=== PATIENT | male | born 1980 | race Two or more races ===

== ENCOUNTER 2021-02-25 12:48 | Outpatient (REF) | payer OTHER, SELFPAY ==
[2021-02-25 14:29] LABS: Alanine Aminotransferase 82 U/L (0-40); Albumin Level 4.4 g/dL (3.5-5.0); Alkaline Phosphatase 87 U/L (39-117); Anion Gap 15 (12-20); Aspartate Amino Transferase 47 U/L (5-37); Bilirubin Total 0.7 mg/dL (0.0-1.0); Blood Urea Nitrogen 9 mg/dL (9-16); Calcium 9.6 mg/dL (8.4-10.2); Carbon Dioxide 26 mmol/L (22-29); Chloride 102 mmol/L (96-108); Cholesterol 187 mg/dL; Estimated Glomerular Filt Rate > 60; Glucose Fasting 374 mg/dL (60-99); HDL Cholesterol 26 mg/dL; Potassium 4.7 mmol/L (3.3-5.1); Sodium 138 mmol/L (135-145); Total Protein 7.2 g/dL (6.5-8.0); Triglycerides 552 mg/dL
== END 2021-02-25 12:49 | disposition home or self-care (01) ==
LOC: HO.HMGCLDS 12:48
PROVIDERS: PCP Internal Medicine; Visit Provider Internal Medicine
DX: I10 Essential (primary) hypertension (principal); G47.33 Obstructive sleep apnea (adult) (pediatric); E66.01 Morbid (severe) obesity due to excess calories; Z68.45 Body mass index [BMI] 70 or greater, adult; Z99.89 Dependence on other enabling machines and devices; Z79.899 Other long term (current) drug therapy
CPT/HCPCS: 36415; 80053; 80061; 99212

== ENCOUNTER → 2022-05-28 11:12 | Outpatient (BNVA) | payer OTHER, SELFPAY | PROVIDERS: PCP Internal Medicine; Visit Provider Internal Medicine | DX: G47.33 Obstructive sleep apnea (adult) (pediatric) (principal); E66.01 Morbid (severe) obesity due to excess calories; Z68.45 Body mass index [BMI] 70 or greater, adult; Z99.89 Dependence on other enabling machines and devices | CPT/HCPCS: 99212 ==

== ENCOUNTER 2022-05-30 13:16 | Outpatient (REF) | payer OTHER, SELFPAY ==
[2022-05-30 17:05] LABS: Creatinine Urine 159.09 mg/dL; Microalbum/Creatinine Ratio Ur 23.8 ug/mg cr
[2022-05-30 17:28] LABS: Alanine Aminotransferase 70 U/L (0-40); Albumin Level 4.6 g/dL (3.5-5.0); Alkaline Phosphatase 79 U/L (39-117); Anion Gap 16 (12-20); Aspartate Amino Transferase 35 U/L (5-37); Bilirubin Total 0.6 mg/dL (0.0-1.0); Blood Urea Nitrogen 11 mg/dL (9-16); Calcium 9.8 mg/dL (8.4-10.2); Carbon Dioxide 25 mmol/L (22-29); Chloride 100 mmol/L (96-108); Cholesterol 215 mg/dL; Estimated Glomerular Filt Rate > 60; Glucose Fasting 193 mg/dL (60-99); HDL Cholesterol 28 mg/dL; LDL Cholesterol Calculated 122 mg/dl; Potassium 4.2 mmol/L (3.3-5.1); Sodium 137 mmol/L (135-145); Total Protein 7.4 g/dL (6.5-8.0); Triglycerides 327 mg/dL
== END 2022-05-30 13:17 | disposition home or self-care (01) ==
LOC: HO.HMGCLDS 13:16
PROVIDERS: PCP Internal Medicine; Visit Provider Internal Medicine
DX: E11.65 Type 2 diabetes mellitus with hyperglycemia (principal); E66.01 Morbid (severe) obesity due to excess calories; Z68.45 Body mass index [BMI] 70 or greater, adult; I10 Essential (primary) hypertension; E78.1 Pure hyperglyceridemia
CPT/HCPCS: 36415; 80053; 80061; 82043

== ENCOUNTER 2024-03-21 09:32 | Outpatient (REF) | payer OTHER, SELFPAY ==
[2024-03-21 13:46] LABS: Estimated Average Glucose 206 mg/dL; Hemoglobin A1c % 8.8 % (<6.0)
[2024-03-21 13:57] LABS: Alanine Aminotransferase 60 U/L (0-40); Albumin Level 4.7 g/dL (3.5-5.0); Alkaline Phosphatase 75 U/L (39-117); Anion Gap 14 (12-20); Aspartate Amino Transferase 25 U/L (5-37); Blood Urea Nitrogen 11 mg/dL (9-16); Calcium 9.4 mg/dL (8.4-10.2); Carbon Dioxide 24 mmol/L (22-29); Chloride 101 mmol/L (96-108); Cholesterol 130 mg/dL (<200); Estimated Glomerular Filt Rate > 60; Glucose Fasting 346 mg/dL (60-99); HDL Cholesterol 29 mg/dL (>40); LDL Cholesterol Calculated 38 mg/dL (<100); Potassium 4.3 mmol/L (3.3-5.1); Sodium 135 mmol/L (135-145); Total Protein 7.7 g/dL (6.5-8.0); Triglycerides 317 mg/dL (<150)
[2024-03-21 13:59] LABS: Creatinine Urine 152.12 mg/dL; Microalbum/Creatinine Ratio Ur 137.3 ug/mg cr (<30)
== END 2024-03-21 09:33 | disposition home or self-care (01) ==
LOC: HO.HMGCLDS 09:32
PROVIDERS: PCP Internal Medicine; Visit Provider Internal Medicine
DX: E78.2 Mixed hyperlipidemia (principal); E11.65 Type 2 diabetes mellitus with hyperglycemia; E66.01 Morbid (severe) obesity due to excess calories; Z68.45 Body mass index [BMI] 70 or greater, adult; I10 Essential (primary) hypertension; F33.9 Major depressive disorder, recurrent, unspecified
CPT/HCPCS: 36415; 80053; 80061; 82043; 82570; 83036

== ENCOUNTER 2024-03-22 11:24 | Outpatient (AMB) | payer OTHER, SELFPAY ==
--- NOTE | 2024-03-22 12:36 | MHC.PC.OV ---
Vital Signs 03/22/24 12:45 Height 5 ft 10 in Weight 264 lb BMI 37.9 BP 122/82 Blood Pressure Location Rt brachial Position Sitting Pulse 79 Pulse Source Pulse Oximeter Pulse Oximetry (%) 98 Oxygen Delivery Method Room Air Intake Visit Reasons: PE Intake Note: Pt is here today for his PE Allergies doxycycline Allergy (Unknown, Verified 03/25/24 17:56) stomach upset Medication List - Last Reconciled 03/25/24 by Isi Carbajal MD alprazolam 0 mg PO benazepril 10 mg PO DAILY cetirizine 10 mg PO DAILY escitalopram oxalate 20 mg PO DAILY melatonin 5 mg PO BEDTIME metformin 1,000 mg PO BID prazosin 5 mg PO BEDTIME quetiapine 50 mg PO QAM rosuvastatin 5 mg PO DAILY tirzepatide (Mounjaro) 2.5 mg (0.5 mL) subcut QWEEK 4 weeks zolpidem 10 mg PO BEDTIME PRN Tobacco use date assessed: 03/22/24 Dental Screening Dental Screen Date: 03/22/24 Did you have a dental visit in the last 12 months?: Yes Did you have a dental problem in the last 6 months where you did not have access to dental care?: No Was dental information given to patient?: Patient has dentist HPI PE HPI Details 44-year-old male with diabetes mellitus, morbid obesity, has hyperlipidemia,, depression, obstructive sleep apnea on CPAP, and hypertension, here today for his physical exam. Had recent fasting labs done which showed uncontrolled diabetes mellitus with hemoglobin A1c at 8.9%, positive microalbuminuria, but fasting lipids are within normal limits blood pressure is also stable and controlled on present treatment. He admits to not eating well, has been eating a lot of processed foods, junk food, high glycemic index food . Patient states that he has been having difficulty controlling his diet as he cooks also for his children 2 of which are autistic and are very picky with her food. No regular exercise done as well Has hypertension currently stable and controlled on present treatment. Has major recurrent depression currently followed by psychiatrist and therapist. Complains of intermittent left flank pain, and states that he noticed fasting some stones in his urine, denies any accompanying hematuria, asymptomatic at present [facility] Medical History (Updated 03/25/24 @ 18:09 by Isi Carbajal MD) Mixed dyslipidemia Depression, major, recurrent Diabetes mellitus with hyperglycemia, without long-term current use of insulin MICKEY on CPAP Morbid obesity with body mass index (BMI) greater than or equal to 70 in adult Essential hypertension Surgical History No pertinent past surgical history Social History Housing: House Patient Tobacco Use Status: Never used Tobacco e-Cigarette/Vaping Use: Never Used Current occupational status: retired Cognitive needs: No Hearing needs: No Vision needs: Yes Questionnaire PHQ-9 Over the last 2 weeks, how often have you been bothered by any of the following problems? 1. Little interest or pleasure in doing things: more than half the days 2. Feeling down, depressed, or hopeless: several days 3. Trouble falling or staying asleep, or sleeping too much: nearly every day 4. Feeling tired or having little energy: nearly every day 5. Poor appetite or overeating: nearly every day 6. Feeling bad about yourself - or that you are a failure or have let yourself or your family down: several days 7. Trouble concentrating on things, such as reading the newspaper or watching television: nearly every day 8. Moving or speaking so slowly that other people could have noticed. Or the opposite - being so fidgety or restless that you have been moving around a lot more than usual: more than half the days 9. Thoughts that you would be better off or of hurting yourself in some way: not at all Total score: 18 Depression Screening Interpretation: Positive (Currently followed by Bladimir Ty-psychiatrist) Depression Screening Follow-up: Existing condition and In treatment Depression Screening Done: Yes Source: Developed by Drs. Amado Yoder, Barbara Kellogg, Luis Angel Kerns and colleagues, with an educational frances from [employer]. Thrive Questionnaire Date Thrive assessed: 03/22/24 I am a: Patient What is your living situation today?: I choose not to answer this question Within the past 12 months, did the food you bought not last and you didn't have the money to get more?: Often true Within the past 12 months, did you worry whether your food would run out before you got money to buy more?: Often true Do you have trouble paying for medicines?: Yes Do you have trouble getting transportation to medical appointments?: Yes Do you have trouble paying your heating and electricity bill?: Yes Do you have trouble taking care of your child, family member or friend?: Yes Do you have trouble with day-to-day activities such as bathing, preparing meals, shopping, managing finances, etc.?: Yes Are you currently unemployed and looking for a job?: No Are you interested in more education?: No Please select the resources that you would like help with: Housing/Longterm, Food and Utilities Currently or been in a relationship where the following occur: I choose not to answer THRIVE Score: 4 AUDIT C Alcohol Use Questionnaire (AUDIT-C) 1. How often do you have a drink containing alcohol?: Never 2. How many drinks containing alcohol do you have on a typical day when you are drinking?: 1 or 2 3. How often do you have six or more drinks on one occasion?: Never Total Score: 0 GROVER-7 AMB Questionnaire GROVER-7 Date GROVER - 7 assessed: 03/22/24 Feeling nervous, anxious, or on edge: 3 = Nearly every day Not being able to stop or control worryin = Nearly every day Worrying too much about different things: 2 = More than half the days Trouble relaxin = Nearly every day Being so restless that it is hard to sit still: 1 = Several days Becoming easily annoyed or irritable: 3 = Nearly every day Feeling afraid as if something awful might happen: 3 = Nearly every day Total GROVER-7 score (0-4 normal; 5-9 mild; 10-14 moderate; 15-21 severe): 18 Source: Developed by Drs. Amado Yoder, Barbara Kellogg, Luis Angel Kerns and colleagues, with an educational frances from [employer]. GROVER-7 Assessment Billing GROVER-7 Assessment Tool: GROVER-7 Assessment 77713 Review of Systems Const Reports no additional complaints Eyes Details: ff'd by Dr Morrow ENT Reports no additional complaints Card Denies chest pain, Denies irregular heart rhythm, Denies leg edema and Denies palpitations Resp Reports no additional complaints GI Reports no additional complaints Reports as per HPI Musc Reports no additional complaints Skin/Breast Denies breast mass Neuro Reports no additional complaints and Reports Abnormal speech present Psych Reports no additional complaints and Reports depression Endo Denies polyphagia, Reports polydipsia, Reports polyuria and Denies palpitations Messi/Lymph Reports no additional complaints Aller/Immun Reports no additional complaints Physical exam (Primary Care) Vital Signs: Last Vital Signs Pulse 79 03/22/24 12:45 BP 122/82 03/22/24 12:45 Pulse Ox 98 03/22/24 12:45 Oxygen Delivery Method Room Air 03/22/24 12:45 BMI result Body Mass Index 37.9 BMI Assessment/Plan discussion: High BMI High, discussed plan: lifestyle, weight reduction, dietary, physical activity and alcohol moderation Tobacco/Smoking Status: Tobacco use Status Tobacco use date assessed 03/22/24 03/22/24 12:50 Patient Tobacco Use Status Never used Tobacco 03/22/24 12:38 e-Cigarette/Vaping Use Never Used 03/22/24 12:38 PHQ-9: PHQ-9 Score PHQ-9: Total score 19 03/22/24 13:26 Depression Screening Interpretation: Positive (Currently followed by Bladimir Ty-psychiatrist) Depression Screening Follow-up: Existing condition and In treatment Thrive Assessment: Date of Thrive Assessment Date Thrive assessed 03/22/24 03/22/24 12:50 Currently or been in a relationship where the following occur: I choose not to answer Const General: cooperative, comfortable and no acute distress Nutritional Appearance: obese morbidly obese Orientation/consciousness: patient oriented x3 Limitations: no limitations HENMT Ears: hearing grossly normal bilaterally, external ears normal, TM's normal bilaterally and EAC's normal General nose exam: Normal external nose present and No nasal discharge present Mouth: oropharynx normal and moist mucous membranes Eyes Pupils: Equal, round and reactive pupils present Neck Neck: Yes full ROM, Yes no lymphadenopathy and Yes supple Chest Chest palpation & inspection: normal inspection of the chest Resp Effort & Inspection: normal respiratory effort and able to speak in complete sentences Auscultation: clear to auscultation bilaterally Cardio Rate: regular rate Rhythm: regular rhythm Heart sounds: S1 normal heart sound present and S2 normal heart sound present GI Inspection: Yes obesity Palpation (GI): Soft to palpation, nontender and no masses Auscultation: normal bowel sounds General: Yes no CVA tenderness Back/Spine/Pelvis Back: no CVA tenderness Skin General skin exam: no rashes or lesions noted Neuro General: patient oriented x3, gait normal, moves all extremities, Normal light touch and pain sensation and no focal motor deficits Cranial nerves: Yes Equal, round and reactive pupils present Cognition (Neuro): normal cognition Speech: Abnormal speech present Gait exam (Neuro): Normal gait present Motor exam (neuro): 5/5 motor strength present throughout Extrem General: Yes full ROM, Yes no joint enlargement, Yes no pedal edema, Yes no calf tenderness and Yes normal gait Psych Appearance: grossly normal Mental Status: mental status grossly normal Speech and movement: Normal speech and movement present Affect: normal affect Attitude: cooperative Thought process: Normal thought process present Immunizations Boostrix Tdap 2.5 Lf unit-8 mcg-5 Lf/0.5 mL intramuscular syringe Performing Provider: Isi Carbajal MD Performing Location: [facility] Administered by: Sho Valente CMA on 03/22/24 13:25 Dose Route Admin Location Dispensed Lot Number Expiration Date NDC Edge Polisher 0.5 mL IM Right Deltoid 0.5 mL [id number] 04/02/26 [id number] [employer] VIS Given Date VIS Provided VIS Publication Date 03/22/24 Single Vaccine 21 Eligibility Eligibility Date Funding Source Not [facility] Eligible 03/22/24 Private Results Reviewed Results Reviewed: Laboratory Tests 03/21/24 10:20 Estimat Average Glucose 206 Hemoglobin A1c % 8.8 H Urine Creatinine 152.12 Urine Microalbumin 209.0 Microalb/Creat Ratio 137.3 H conrado: Nam Angel Age/Sex: 44/M : 1980 Unit#: [id number] Attend Dr: Isi Carbajal MD Re03/21/24 Status: DEP REF Location: [facility] Disch: SPEC : [id number] YOKO: 03/21/24 STATUS: COMP REQ : [id number] RECD: 03/21/24-[address]: Isi Carbajal MD COMP: 03/21/24 ENTERED: 03/21/24-[address]: ORDERED: CMP Fast, Lipid Panel Test Result Flag Reference Sodium 135 135-145 mmol/L Potassium 4.3 3.3-5.1 mmol/L CL 101 96-108 mmol/L CO2 24 22-29 mmol/L Gap 14 12-20 BUN 11 9-16 mg/dL Creat 0.90 0.5-1.4 mg/dL EGFR > 60 NOTE: For -[place] individuals, multiply the result by 1.210. Chronic Kidney Disease: Estimated GFR < 60 mL/min/1.73m2 Severe Kidney Disease: Estimated GFR < 15 mL/min/1.73m2 FBS 346 H 60-99 mg/dL A fasting glucose of 126 mg/dl or greater on more than one occasion is considered diagnostic of diabetes. CA 9.4 8.4-10.2 mg/dL Total Bili 1.0 0.0-1.0 mg/dL AST (GOT) 25 5-37 U/L ALT (GPT) 60 H 0-40 U/L Protein, Total 7.7 6.5-8.0 g/dL Alb 4.7 3.5-5.0 g/dL Triglyceride 317 H <150 mg/dL Desirable Triglyceride: less than 150 mg/dL Borderline High Triglyceride 150-199 mg/dL High Triglyceride: 200-499 mg/dL Very High Triglyceride: greater than or equal to 5OO mg/dL Cholesterol 130 <200 mg/dL Desirable Cholesterol: less than 200 mg/dL Borderline High Cholesterol: 200-239 mg/dL High Cholesterol: greater than 239 mg/dL LDL Calculated 38 <100 mg/dL Desirable LDL: less than 100 mg/dL Near Optimal/Above Optimal LDL: 110-129 mg/dL Borderline High LDL: 130-159 mg/dL High LDL: 160-189 mg/dL Very High LDL: greater than or equal to 190 mg/dL HDL 29 L >40 mg/dL Desirable HDL: greater than 40 mg/dL Note: This HDL assay may give artificially low results in patients with liver disease. Alk Phos 75 39-117 U/L Assessment and Plan Assessment & Plan (1) Annual visit for general adult medical examination with abnormal findings: Code(s): Z00.01 - Encounter for general adult medical examination with abnormal findings Plan: Recent fasting lab results reviewed with patient. Recommended dental visit every 6 months and regular eye exams, sees Dr. Morrow yearly, has an appointment later this afternoon.. Take adequate calcium in diet and vitamin-D 3 at 2000 IU per cap once a day, in addition to weight-bearing exercises to help maintain good muscle tone and weight control. Instructed to do self-testicular exam check for any mass. Declines COVID vaccine, reminded to get his flu vaccine yearly, up-to-date with his pneumonia vaccine, Tdap given today. Referred to [facility] for his colon cancer screening (2) Left flank pain: Code(s): R10.9 - Unspecified abdominal pain Plan: Renal ultrasound ordered (3) Mixed dyslipidemia: Code(s): E78.2 - Mixed hyperlipidemia Plan: Reviewed recent fasting lipid profile with patient with LDL cholesterol within normal limits but triglycerides elevated was likely due to uncontrolled diabetes . Continue rosuvastatin 5 mg daily , in addition to adherence to low-cholesterol diet and regular exercise, at least 30 minutes 3 to 4 times a week. Advised patient to make healthy food choices, eat more fruits, vegetables, whole grains, wild caught fish and low-fat dairy. Limit amount of meat and fried or fatty food products, as well as processed foods and fast foods. Follow-up scheduled with repeat fasting lipid panel in 3 months. (4) Depression, major, recurrent: Code(s): F33.9 - Major depressive disorder, recurrent, unspecified Plan: Followed by psychiatry (5) Diabetes mellitus with hyperglycemia, without long-term current use of insulin: Code(s): E11.65 - Type 2 diabetes mellitus with hyperglycemia Plan: Recent lab results reviewed with patient, with sugar and hemoglobin A1c not at goal. Patient states that he has been out of his Trulicity for several weeks now, will start on Mounjaro, started 2.5 mg injected once a week subcutaneously, continue with metformin a 1000 mg 1 tablet twice a day, continue to check fasting blood sugar at home, maintain log and bring to next appointment for review. Reinforced diabetic diet and regular exercise with patient. Counseled regarding importance of yearly diabetes retinopathy screening. Patient advised to inspect feet daily, for any signs of injury, callus or infection. Compliance with diet and regular exercise again stressed. Blood pressure goal is less than 130/80, goal LDL is less than 100 and goal hemoglobin A1c is less than 7% follow-up appointment made in---months, after fasting labs done. (6) MICKEY on CPAP: Comment: HE IS KNOWN TO HAVE OBSTRUCTIVE SLEEP APNEA SINCE 2017. HAS BEEN USING THE CPAP VERY REGULARLY AND BENEFITING. HIS CURRENT CPAP MACHINE IS 7 YEARS OLD, HAD STOPPED TRANSMITTING THE COMPLIANCE DATA. Code(s): G47.33 - Obstructive sleep apnea (adult) (pediatric); Z99.89 - Dependence on other enabling machines and devices Plan: Followed by Pulmonary (7) Morbid obesity with body mass index (BMI) greater than or equal to 70 in adult: Code(s): E66.01 - Morbid (severe) obesity due to excess calories; Z68.45 - Body mass index [BMI] 70 or greater, adult Plan: Your BMI is above the ideal range. I deal BMI is between 18.5- 24. BMI is calculated from you height and weight. . Discussed need to increase activity and weight reduction. Recommended focusing on improving health instead of dieting. Mediterranean diet is a healthy diet that helps, limit food high in fat, sugar, and calories. Eat slowly, pay attention to portion sizes, plan your meals ahead of time, start regular physical activity, at least 150 minutes of moderate intensity exercise, or 90 minutes per week of vigorous exercise. Keeping a food diary, tracking what you eat and your physical activity can help assess what improvements you can make. There are many health problems associated with being overweight/obese, so it is important to improve your diet and exercise. There are medications and surgical options available, but Lifestyle changes are the 1st step. (8) Essential hypertension: Code(s): I10 - Essential (primary) hypertension Plan: Blood pressure at goal of less than 130/80. Continue with current medication. Reinforced importance of following a low sodium diet, getting regular exercise, and lowering stress levels. Orders: Orders US renal BI 03/24/24 R10.9 - Unspecified abdominal pain TDaP Immunization 03/22/24 Z23 - Encounter for immunization Hemoglobin A1c 06/17/24 E11.65 - Type 2 diabetes mellitus with hyperglycemia, E66.01 - Morbid (severe) obesity due to excess calories, E66.9 - Obesity, unspecified, E78.2 - Mixed hyperlipidemia, I10 - Essential (primary) hypertension, Z68.45 - Body mass index [BMI] 70 or greater, adult Basic Metabolic Panel Fasting 06/17/24 E11.65 - Type 2 diabetes mellitus with hyperglycemia, E66.01 - Morbid (severe) obesity due to excess calories, E66.9 - Obesity, unspecified, E78.2 - Mixed hyperlipidemia, I10 - Essential (primary) hypertension, Z68.45 - Body mass index [BMI] 70 or greater, adult Alanine Aminotransferase 06/17/24 E11.65 - Type 2 diabetes mellitus with hyperglycemia, E66.01 - Morbid (severe) obesity due to excess calories, E66.9 - Obesity, unspecified, E78.2 - Mixed hyperlipidemia, I10 - Essential (primary) hypertension, Z68.45 - Body mass index [BMI] 70 or greater, adult Aspartate Amino Transferase 06/17/24 E11.65 - Type 2 diabetes mellitus with hyperglycemia, E66.01 - Morbid (severe) obesity due to excess calories, E66.9 - Obesity, unspecified, E78.2 - Mixed hyperlipidemia, I10 - Essential (primary) hypertension, Z68.45 - Body mass index [BMI] 70 or greater, adult Lipid Panel 06/17/24 E11.65 - Type 2 diabetes mellitus with hyperglycemia, E66.01 - Morbid (severe) obesity due to excess calories, E66.9 - Obesity, unspecified, E78.2 - Mixed hyperlipidemia, I10 - Essential (primary) hypertension, Z68.45 - Body mass index [BMI] 70 or greater, adult Referrals Gastroenterology Referral Z12.11 - Encounter for screening for malignant neoplasm of colon Medications: New tirzepatide (Mounjaro) 2.5 mg (0.5 mL) subcut QWEEK 4 weeks 2 mL 3RF Coding Level of Care Code Est Pt Prev Care 40-64y(97351) Diagnoses Annual visit for general adult medical examination with abnormal findings Z00.01 Left flank pain R10.9 Mixed dyslipidemia E78.2 Depression, major, recurrent F33.9 Diabetes mellitus with hyperglycemia, without long-term current use of insulin E11.65 MICKEY on CPAP G47.33; Z99.89 Morbid obesity with body mass index (BMI) greater than or equal to 70 in adult E66.01; Z68.45 Essential hypertension I10 Additional Codes GROVER-7 Assessment Billing - GROVER-7 Assessment Tool: GROVER-7 Assessment [id number] ([id number])
[2024-03-22 12:45] VITALS: BP 122/82; PULSE 79; O2SAT 98; BMI 37.9
== END 2024-03-22 13:31 | disposition home or self-care (01) ==
PROVIDERS: PCP Internal Medicine; Visit Provider Internal Medicine
DX: Z23 Encounter for immunization (principal)
CPT/HCPCS: 90471; 90715; 99396

== ENCOUNTER 2024-03-23 14:04 | Outpatient (AMB) | payer OTHER, SELFPAY ==
[2024-03-23 14:16] VITALS: BP 124/80; PULSE 84; O2SAT 98; BMI 38.0
--- NOTE | 2024-03-23 14:16 | MHC.OFFVIS ---
Vital Signs 03/23/24 14:16 Height 5 ft 10 in Weight 264 lb 8.875 oz BMI 38.0 BP 124/80 Blood Pressure Location Lt brachial Position Sitting Pulse 84 Pulse Source Pulse Oximeter Pulse Oximetry (%) 98 Oxygen Delivery Method Room Air Intake Visit Reasons: Obstructive sleep apnea Intake Note: pt is here for follow up of MICKEY, and would like a replacement machine, he uses everynight with benefits. 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 Since then he has been using his CPAP regularly. And benefiting from its use In fact it will be difficult for him to go to sleep without using the CPAP. He has not been able to lose weight. In the last 2 months his CPAP machine is not transmitting the data for compliance. But he say is that he still uses it regularly at least 6-7 hours per night. Weight remains unchanged as he is not able to do a vigorous exercise on a daily basis. Now he has been started on Mounjero injection Q 1 week [facility] Medical History (Updated 03/23/24 @ 14:52 by Renato Finnegan MD) Obesity (BMI 30-39.9) Mixed dyslipidemia Depression, major, recurrent Diabetes mellitus with hyperglycemia, without long-term current use of insulin MICKEY on CPAP Morbid obesity with body mass index (BMI) greater than or equal to 70 in adult Essential hypertension Surgical History No pertinent past surgical history Social History Housing: House Patient Tobacco Use Status: Never used Tobacco e-Cigarette/Vaping Use: Never Used Current occupational status: retired Cognitive needs: No Hearing needs: No Vision needs: Yes Review of Systems Const All systems reviewed & are unremarkable except as noted in HPI and below Eyes Reports no additional complaints ENT Reports no additional complaints Card Denies chest pain, Denies irregular heart rhythm and Denies leg edema Resp Reports no additional complaints GI Reports no additional complaints Musc Reports no additional complaints Neuro Reports no additional complaints and Reports Abnormal speech present Psych Reports no additional complaints and Reports depression (CONTROLLED WITH MED.) Messi/Lymph Reports no additional complaints Physical Exam Vital Signs: Last Vital Signs Pulse 84 03/23/24 14:16 BP 124/80 03/23/24 14:16 Pulse Ox 98 03/23/24 14:16 Oxygen Delivery Method Room Air 03/23/24 14:16 BMI result Body Mass Index 38.0 Const Other: HE IS GROSSLY OBESE WITH A ROUND FACE AND VERY LARGE NECK. General: comfortable, no acute distress, alert and awake Orientation/consciousness: patient oriented x3 HEENT Other: HAS A BULKY PEAK, ROUND FACE AND A LARGE OBESE NECK. Head: Yes normal to inspection General nose exam: No nasal polyps present and No nasal discharge present Face and sinus: Yes sinuses nontender Mouth: oropharynx abnormals (OROPHARYNX IS CROWDED AND NARROW WITH MALLAMPATI CLASS 4) Throat: Yes posterior oropharynx normal Eyes General: appearance normal, both eyes and all related structures Neck Neck: Yes normal visual inspection, Yes no lymphadenopathy, Yes trachea midline, Yes no JVD and Yes other (EXTREMELY OBESE) Thyroid: Thyroid normal Chest Chest palpation & inspection: normal inspection of the chest, normal palpation of entire chest wall and no tenderness Resp Effort & Inspection: normal respiratory effort Auscultation: clear to auscultation bilaterally, no crackles and no wheezes Cardio Palpation: PMI not normal (PMI NOT PALPABLE) Rate: regular rate Rhythm: regular rhythm Heart sounds: Gallop heart sound present and Murmur heart sound present Peripheral pulses: Peripheral pulses 2+ throughout GI Palpation (GI): Soft to palpation, nontender, No hepatosplenomegaly present, no masses and Other GI palpation findings present (ABDOMEN IS GROSSLY OBESE AND PENDULOUS) Auscultation: normal bowel sounds Back/Spine/Pelvis Thoracic/Lumbar Spine: thoracic and lumbar spine normal to inspection Skin General skin exam: no rashes or lesions noted Neuro General: patient oriented x3 and no focal motor deficits Cranial nerves: Yes CN's II-XII intact bilaterally Speech: Abnormal speech present Extrem General: Yes normal to inspection, Yes no clubbing, cyanosis or edema, Yes no calf tenderness and Yes venous stasis dermatitis Psych Appearance: grossly normal and well kempt Speech and movement: Normal speech and movement present Results Reviewed Results Reviewed: Compliance for the last whole year is reviewed up until mid November he was using it every day regularly average use it per night 7 hours 1 minute. Even after November he continue to use CPAP every night but it is not recorded in the compliance report. His residual AHI is only 0.2 Assessment & Plan Assessment & Plan (1) MICKEY on CPAP: Comment: HE IS KNOWN TO HAVE OBSTRUCTIVE SLEEP APNEA SINCE 2017. HAS BEEN USING THE CPAP VERY REGULARLY AND BENEFITING. HIS CURRENT CPAP MACHINE IS 7 YEARS OLD, HAD STOPPED TRANSMITTING THE COMPLIANCE DATA. Code(s): G47.33 - Obstructive sleep apnea (adult) (pediatric); Z99.89 - Dependence on other enabling machines and devices Category: Medical Plan: HE NEEDS A NEW REPLACEMENT CPAP MACHINE FOR WHICH THE ORDERS HAVE BEEN SENT. WILL BE RECHECKED IN 2 OR 3 MONTHS TO GO OVER THE COMPLIANCE . (2) Obesity (BMI 30-39.9): Comment: PATIENT REMAINS GROSSLY OBESE. CURRENT BMI 38. Code(s): E66.9 - Obesity, unspecified Category: Medical Plan: HAS BEEN STARTED ON MOUNJERO INJECTION THERAPY Q 1 WEEK, AND HOPEFULLY HE WILL LOSE WEIGHT. Coding Level of Care Code Est Pt Level 3 (75448) Diagnoses MICKEY on CPAP G47.33; Z99.89 Obesity (BMI 30-39.9) E66.9
== END 2024-03-23 14:38 | disposition home or self-care (01) ==
PROVIDERS: PCP Internal Medicine; Visit Provider Internal Medicine
DX: G47.33 Obstructive sleep apnea (adult) (pediatric) (principal); Z99.89 Dependence on other enabling machines and devices; E66.9 Obesity, unspecified
CPT/HCPCS: 99213

== ENCOUNTER → 2024-03-23 14:04 | Outpatient (BNVA) | payer OTHER, SELFPAY | PROVIDERS: PCP Internal Medicine; Visit Provider Internal Medicine | DX: G47.33 Obstructive sleep apnea (adult) (pediatric) (principal); E66.9 Obesity, unspecified; Z99.89 Dependence on other enabling machines and devices; Z68.38 Body mass index [BMI] 38.0-38.9, adult | CPT/HCPCS: 99212 ==

== ENCOUNTER 2024-03-24 11:06 | Outpatient (REF) | payer OTHER, SELFPAY ==
--- NOTE | ~2024-03-24 | US_ITS ---
EXAMINATION: US RETROPERITONEAL LIMITED (RENAL ONLY) CLINICAL INFORMATION: Left flank pain. Unspecified abdominal pain. COMPARISON: CT abdomen and pelvis 02/12/2018. TECHNIQUE: Real-time imaging of the kidneys. Limited visualization due to bowel gas. FINDINGS: RIGHT KIDNEY: 14.4 x 5.2 x 7.2 cm (SAG x AP x TRV). Right renal 7 mm upper pole calculus. No hydronephrosis. Renal cortical thickness is normal. Limited visualization. LEFT KIDNEY: 13.3 x 5.9 x 6.9 cm (SAG x AP x TRV). No hydronephrosis. Multiple tiny renal echogenic foci may represent vascular calcifications, artifact or tiny nonobstructive renal calculi. No hydronephrosis. 2.4 cm lower pole cyst with benign features. There is no indication for follow-up imaging. US/US renal BI IMPRESSION: 1. Right renal 7 mm upper pole calculus. No hydronephrosis. 2. Multiple tiny left renal echogenic foci may represent vascular calcifications, artifact or tiny nonobstructive renal calculi. No hydronephrosis.
== END 2024-03-24 11:07 | disposition home or self-care (01) ==
LOC: HO.HMGCX 11:06
PROVIDERS: PCP Internal Medicine; Visit Provider Internal Medicine
DX: R10.9 Unspecified abdominal pain (principal)
CPT/HCPCS: 76775

== ENCOUNTER 2024-07-07 10:51 | Outpatient (REF) | payer OTHER, SELFPAY ==
[2024-07-07 13:30] LABS: Estimated Average Glucose 103 mg/dL; Hemoglobin A1C 120.5009 umol/L; Hemoglobin A1c % 5.2 % (<6.0); Total Hemoglobin (HGBA1C) 3561.8053 umol/L
[2024-07-07 13:31] LABS: Alanine Aminotransferase 58 U/L (0-40); Anion Gap 11 (12-20); Aspartate Amino Transferase 32 U/L (5-37); Blood Urea Nitrogen 10 mg/dL (9-16); Calcium 9.6 mg/dL (8.4-10.2); Carbon Dioxide 27 mmol/L (22-29); Chloride 106 mmol/L (96-108); Cholesterol 104 mg/dL (<200); Estimated Glomerular Filt Rate > 60; Glucose Fasting 129 mg/dL (60-99); HDL Cholesterol 27 mg/dL (>40); LDL Cholesterol Calculated 46 mg/dL (<100); Potassium 3.9 mmol/L (3.3-5.1); Sodium 140 mmol/L (135-145); Triglycerides 156 mg/dL (<150)
== END 2024-07-07 10:52 | disposition home or self-care (01) ==
LOC: HO.HMGCLDS 10:51
PROVIDERS: PCP Internal Medicine; Visit Provider Internal Medicine
DX: E66.9 Obesity, unspecified (principal); E11.65 Type 2 diabetes mellitus with hyperglycemia; E66.01 Morbid (severe) obesity due to excess calories; Z68.45 Body mass index [BMI] 70 or greater, adult; I10 Essential (primary) hypertension; E78.2 Mixed hyperlipidemia; G47.33 Obstructive sleep apnea (adult) (pediatric); Z99.89 Dependence on other enabling machines and devices; N20.0 Calculus of kidney
CPT/HCPCS: 36415; 80048; 80061; 81003; 83036; 84450; 84460; 99202; 99212

== ENCOUNTER 2024-07-07 13:12 | Outpatient (AMB) | payer OTHER, SELFPAY ==
[2024-07-07 13:23] VITALS: BP 110/70; PULSE 78; O2SAT 98; BMI 34.2
--- NOTE | 2024-07-07 13:23 | A.OFFVIS_ITS ---
Vital Signs 07/07/24 13:23 Height 5 ft 10 in Weight 238 lb 1.588 oz BMI 34.2 BP 110/70 Blood Pressure Location Lt brachial Position Sitting Pulse 78 Pulse Source Pulse Oximeter Pulse Oximetry (%) 98 Oxygen Delivery Method Room Air Intake Visit Reasons: Obstructive sleep apnea Intake Note: pt is here for follow up and is using cpap, received new cpap. and is doing well Blower Insulator Required: No Allergies doxycycline Allergy (Unknown, Verified 07/07/24 13:29) stomach upset Medication List - Last Reconciled 07/07/24 by Renato Finnegan MD alprazolam 0 mg PO benazepril 10 mg PO DAILY cetirizine 10 mg PO DAILY escitalopram oxalate 20 mg PO DAILY melatonin 5 mg PO BEDTIME metformin 1,000 mg PO BID prazosin 5 mg PO BEDTIME quetiapine 50 mg PO QAM rosuvastatin 5 mg PO DAILY tirzepatide (Mounjaro) 2.5 mg (0.5 mL) subcut QWEEK 4 weeks zolpidem 10 mg PO BEDTIME PRN Do you need a note to return to daycare/school/sports/work: No HPI HPI Obstructive sleep apnea: Details: This 44 years old gentleman who was grossly obese, and has obstructive sleep apnea for the past 7+ years. Comes in today for follow-up after he has received the new CPAP machine. Uses fullface mask which. Is comfortable He is 100% compliant to use the CPAP. Sleeps very well and in fact he is afraid that without the CPAP machine he just can not sleep. At the same time he is also on weight reduction track with the help of Mounjaro injections 0.5 mil q.4 weeks. He is very happy. [facility] Medical History Mixed dyslipidemia Depression, major, recurrent Diabetes mellitus with hyperglycemia, without long-term current use of insulin MICKEY on CPAP Morbid obesity with body mass index (BMI) greater than or equal to 70 in adult Essential hypertension Surgical History No pertinent past surgical history Social History Housing: House Patient Tobacco Use Status: Never used Tobacco e-Cigarette/Vaping Use: Never Used Current occupational status: retired Cognitive needs: No Hearing needs: No Vision needs: Yes Review of Systems Const All systems reviewed & are unremarkable except as noted in HPI and below Eyes Reports no additional complaints ENT Reports no additional complaints Card Denies chest pain, Denies irregular heart rhythm and Denies leg edema Resp Reports no additional complaints GI Reports no additional complaints Musc Reports no additional complaints Neuro Reports no additional complaints and Reports Abnormal speech present Psych Reports no additional complaints and Reports depression (CONTROLLED WITH MED.) Messi/Lymph Reports no additional complaints Physical Exam Vital Signs: Last Vital Signs Pulse 78 07/07/24 13:23 BP 110/70 07/07/24 13:23 Pulse Ox 98 07/07/24 13:23 Oxygen Delivery Method Room Air 07/07/24 13:23 BMI result Body Mass Index 34.2 Const Other: HE IS GROSSLY OBESE WITH A ROUND FACE AND VERY LARGE NECK. 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 General: comfortable, no acute distress, alert and awake Orientation/consciousness: patient oriented x3 HEENT Other: HAS A BULKY PEAK, ROUND FACE AND A LARGE OBESE NECK. Head: Yes normal to inspection General nose exam: No nasal polyps present and No nasal discharge present Face and sinus: Yes sinuses nontender Mouth: oropharynx abnormals (OROPHARYNX IS CROWDED AND NARROW WITH MALLAMPATI CLASS 4) Throat: Yes posterior oropharynx normal Eyes General: appearance normal, both eyes and all related structures Neck Neck: Yes normal visual inspection, Yes no lymphadenopathy, Yes trachea midline, Yes no JVD and Yes other (EXTREMELY OBESE) Thyroid: Thyroid normal Chest Chest palpation & inspection: normal inspection of the chest, normal palpation of entire chest wall and no tenderness Resp Effort & Inspection: normal respiratory effort Auscultation: clear to auscultation bilaterally, no crackles and no wheezes Cardio Palpation: PMI not normal (PMI NOT PALPABLE) Rate: regular rate Rhythm: regular rhythm Heart sounds: Gallop heart sound present and Murmur heart sound present Peripheral pulses: Peripheral pulses 2+ throughout GI Palpation (GI): Soft to palpation, nontender, No hepatosplenomegaly present, no masses and Other GI palpation findings present (ABDOMEN IS GROSSLY OBESE AND PENDULOUS) Auscultation: normal bowel sounds Back/Spine/Pelvis Thoracic/Lumbar Spine: thoracic and lumbar spine normal to inspection Skin General skin exam: no rashes or lesions noted Neuro General: patient oriented x3 and no focal motor deficits Cranial nerves: Yes CN's II-XII intact bilaterally Speech: Abnormal speech present Extrem General: Yes normal to inspection, Yes no clubbing, cyanosis or edema, Yes no calf tenderness and Yes venous stasis dermatitis Psych Appearance: grossly normal and well kempt Speech and movement: Normal speech and movement present Results Reviewed Results Reviewed: COMPLIANCE REPORT FOR THE LAST 30 NIGHTS IS REVIEWED. HE HAS USED 30/30 NIGHTS, 100%, AVERAGE USE IT PER NIGHT 7 HOURS 53 MINUTES. PRESSURE IS 14 CM. HE USES FULLFACE MASK. THERE IS SOME AIR LEAK ISSUE. HOWEVER HIS RESIDUAL AHI IS ONLY 0.1 Assessment & Plan Assessment & Plan (1) Morbid obesity with body mass index (BMI) greater than or equal to 70 in adult: Comment: PATIENT IS GROSSLY OBESE, BUT LOSING WEIGHT. CURRENTLY ON TTIRZEPATIDE ( MOUNJARO ) INJECTIONS AND HE IS THRILLED TO REPORT THAT HE HAS LOST 26 LB SINCE HIS LAST VISIT. Code(s): E66.01 - Morbid (severe) obesity due to excess calories; Z68.45 - Body mass index [BMI] 70 or greater, adult Category: Medical Plan: COMMENDED FOR HIS MOTIVATION TO LOSE WEIGHT, ADVISED TO CONTINUE TO FOLLOW THE DIET AND MOUNJARO INJECTIONS (2) MICKEY on CPAP: Comment: HE IS KNOWN TO HAVE OBSTRUCTIVE SLEEP APNEA SINCE 2017. JUST GOT THE NEW CPAP MACHINE AND HE IS USING IT VERY REGULARLY. HIS COMPLIANCE IS 100%. HE SLEEPS GOOD. Code(s): G47.33 - Obstructive sleep apnea (adult) (pediatric); Z99.89 - Dependence on other enabling machines and devices Category: Medical Plan: ADVISED TO CONTINUE USING THE CPAP REGULARLY EVERY NIGHT Coding Level of Care Code Est Pt Level 3 (65508) Diagnoses Morbid obesity with body mass index (BMI) greater than or equal to 70 in adult E66.01; Z68.45 MICKEY on CPAP G47.33; Z99.89
== END 2024-07-07 13:37 | disposition home or self-care (01) ==
PROVIDERS: PCP Internal Medicine; Visit Provider Internal Medicine
DX: E66.01 Morbid (severe) obesity due to excess calories (principal); Z68.45 Body mass index [BMI] 70 or greater, adult; G47.33 Obstructive sleep apnea (adult) (pediatric); Z99.89 Dependence on other enabling machines and devices
CPT/HCPCS: 99213

== ENCOUNTER 2024-07-07 15:16 | Outpatient (AMB) | payer OTHER, SELFPAY ==
--- NOTE | 2024-07-07 15:29 | A.OFFVIS_ITS ---
Intake Visit Reasons: bilateral nephrolithiasis Intake Note: New Patient presents for initial visit for nephrolithiasis Urology Medications: none Blood Thinner: none Room Service Waiter Required: No Accompanied by: Self / Same As Patient Allergies doxycycline Allergy (Unknown, Verified 07/07/24 16:28) stomach upset Medication List - Last Reconciled 07/07/24 by VALORIE Browne- alprazolam 0 mg PO benazepril 10 mg PO DAILY cetirizine 10 mg PO DAILY escitalopram oxalate 20 mg PO DAILY melatonin 5 mg PO BEDTIME metformin 1,000 mg PO BID prazosin 5 mg PO BEDTIME pyridoxine (vitamin B6) 100 mg PO DAILY 90 days quetiapine 50 mg PO QAM rosuvastatin 5 mg PO DAILY tirzepatide (Mounjaro) 2.5 mg (0.5 mL) subcut QWEEK 4 weeks zolpidem 10 mg PO BEDTIME PRN HPI Comments Details: Nam is a very pleasant 44-year-old male patient of Dr. Carbajal. He has a past medical history of mixed hyperlipidemia, depression, diabetes, MICKEY on CPAP, and hypertension. he presents to the office today as a new patient for nephrolithiasis. In discussion with the patient today reports a longstanding history of nephrolithiasis requiring surgical intervention in the past with ureteroscopy and ureteral stent removal on the left side. He reports having experienced left-sided flank pain at which time he seeked emergency room care and a renal ultrasound was ordered and performed. These results were reviewed with the patient today. Bilateral kidneys with no hydronephrosis. right kidney with 7 mm upper pole nonobstructing calculus. Left kidney with multiple tiny renal echogenic foci that can represent vascular calcifications verses nonobstructive renal calculi. 2.4 cm lower pole cyst with benign features that require no imaging follow-up per radiology report. We discussed potential causes of nephrolithiasis as well as further workup to include 24 hour urine collection and labs. He currently denies any bothersome urinary issues or concerns. He denies urinary urgency, urinary frequency, incontinence, nocturia, hematuria, dysuria, foul smelling urine, changes to urinary stream, flank pain, fever, and or chills. He is happy with his current voiding parameters. He otherwise offers no other issues or concerns at this. [facility] Medical History Mixed dyslipidemia Depression, major, recurrent Diabetes mellitus with hyperglycemia, without long-term current use of insulin MICKEY on CPAP Morbid obesity with body mass index (BMI) greater than or equal to 70 in adult Essential hypertension Surgical History No pertinent past surgical history Social History Housing: House Patient Tobacco Use Status: Never used Tobacco e-Cigarette/Vaping Use: Never Used Current occupational status: retired Cognitive needs: No Hearing needs: No Vision needs: Yes Review of Systems Const All systems reviewed & are unremarkable except as noted in HPI and below Physical Exam Const General: cooperative, healthy appearing, comfortable, no acute distress, well developed, alert and awake Orientation/consciousness: patient oriented x3 Limitations: no limitations HEENT Head: Yes normal to inspection, Yes normocephalic and Yes atraumatic Ears: hearing grossly normal bilaterally Eyes General: appearance normal, both eyes and all related structures Neck Neck: Yes normal visual inspection and Yes trachea midline Chest Chest palpation & inspection: normal inspection of the chest Resp Effort & Inspection: normal respiratory effort and able to speak in complete sentences Cardio Rate: regular rate GI Inspection: Yes normal to inspection General: Yes no CVA tenderness Back/Spine/Pelvis Back: no CVA tenderness Skin General skin exam: no rashes or lesions noted Neuro General: patient oriented x3 Extrem General: Yes normal to inspection Psych Appearance: grossly normal and well kempt Mental Status: mental status grossly normal Speech and movement: Normal speech and movement present and Clear speech present Affect: normal affect Attitude: cooperative Thought process: Normal thought process present Thought content: Normal thought content present Insight: Fair insight present (Psych) Judgement: Fair judgement present (Psych) Results AMB Urinalysis, Automated UA Leukoctes 0 Michael/uL Last Edit by Roberto Alex on 07/07/24 16:21 UA Nitrite Last Edit by Roberto Alex on 07/07/24 16:21 UA Urobilinogen 0.2 mg/dL Last Edit by Roberto Alex on 07/07/24 16:21 UA Protein 0 mg/dL Last Edit by Roberto Alex on 07/07/24 16:21 UA pH 6.0 Last Edit by Roberto Alex on 07/07/24 16:21 UA Blood 10 Edwin/uL Last Edit by Roberto Alex on 07/07/24 16:21 UA Specific [place] 1.025 Last Edit by Innovaclint Alex on 07/07/24 16:21 UA Ketone Last Edit by Innovaclint Alex on 07/07/24 16:21 UA Bilirubin 0 mg/dL Last Edit by Roberto Alex on 07/07/24 16:21 UA Glucose 0 mg/dL Last Edit by Roberto Alex on 07/07/24 16:21 Results Reviewed Results Reviewed: Laboratory Last Values Urine pH (Auto) 6.0 07/07/24 16:12 Specific [place] (Auto) 1.025 07/07/24 16:12 Urine Protein (Auto) 0 mg/dL 07/07/24 16:12 Glucose (UA)(Auto) 0 mg/dL 07/07/24 16:12 Urine Blood (Auto) 10 Edwin/uL 07/07/24 16:12 Urine Bilirubin (Auto) 0 mg/dL 07/07/24 16:12 Urine Urobilinogen (Auto) 0.2 mg/dL 07/07/24 16:12 Leukocyte Esterase (Auto) 0 Michael/uL 07/07/24 16:12 Date of Service: 03/24/24 EXAMINATION: US RETROPERITONEAL LIMITED (RENAL ONLY) FINDINGS: RIGHT KIDNEY: 14.4 x 5.2 x 7.2 cm (SAG x AP x TRV). Right renal 7 mm upper pole calculus. No hydronephrosis. Renal cortical thickness is normal. Limited visualization. LEFT KIDNEY: 13.3 x 5.9 x 6.9 cm (SAG x AP x TRV). No hydronephrosis. Multiple tiny renal echogenic foci may represent vascular calcifications, artifact or tiny nonobstructive renal calculi. No hydronephrosis. 2.4 cm lower pole cyst with benign features. There is no indication for follow-up imaging. IMPRESSION: 1. Right renal 7 mm upper pole calculus. No hydronephrosis. 2. Multiple tiny left renal echogenic foci may represent vascular calcifications, artifact or tiny nonobstructive renal calculi. No hydronephrosis. Assessment & Plan Assessment & Plan (1) Nephrolithiasis: Code(s): N20.0 - Calculus of kidney Category: Medical Plan In office urinalysis results with the patient today; as noted above. Recent renal imaging results reviewed with the patient today; as noted above. Discussed at length potential causes of nephrolithiasis Discussed, educated, and stressed the importance of adequate hydration relation to nephrolithiasis as well as overall health and well-being. Patient currently denies any bothersome urinary issues or concerns. He reports be happy with current voiding parameters. Discussed adding 1 oz of lemon juice to water daily. Start vitamin B6 as discussed and prescribed. Will continue with surveillance monitoring. Will obtain KUB in 4 months. Follow-up in 4 months with imaging to be completed prior; or sooner with any issues, concerns, and or question Orders: Orders AMB Urinalysis Automated Today Z13.9 - Encounter for screening, unspecified XR KUB 4 Months N20.0 - Calculus of kidney Medications: New pyridoxine (vitamin B6) 100 mg PO DAILY 90 tabs 1RF 90 days N20.0 - Calculus of kidney Patient Instructions: The patient had an opportunity to ask questions regarding the treatment plan. All questions were answered. Physical exam, labs, and imaging were discussed and reviewed in detail. As well as risks, benefits, and discussion of treatment choices. No major barriers to understanding were identified. The patient expressed understanding and agreement with the above treatment plan. The patient was made aware they should contact our office by phone for worsening of their current condition, the appearance of new symptoms, or with any questions or concerns. Compliance is encouraged with any medications and follow up testing that is ordered. It is a privilege to be allowed the opportunity to participate in? your urological care.? Again, if you have any questions or concerns If you have any questions or concerns please do not hesitate to contact me. The office is [phone]. This note is constructed using voice recognition software. While every effort has been made to ensure accuracy supervisor aircraft cleaning errors may have been included. Yours sincerely, Laura Tinajero, [employer] WORKER[employer] Coding Level of Care Code New Pt Level 4 (96777) Diagnoses Nephrolithiasis N20.0
== END 2024-07-07 15:59 | disposition home or self-care (01) ==
PROVIDERS: PCP Internal Medicine; Visit Provider Nurse Practitioner Family
DX: Z13.9 Encounter for screening, unspecified (principal); N20.0 Calculus of kidney
CPT/HCPCS: 99204

== ENCOUNTER 2024-07-08 11:01 | Outpatient (AMB) | payer OTHER, SELFPAY ==
--- NOTE | 2024-07-08 09:23 | A.OFFPC_ITS ---
Vital Signs 07/08/24 09:26 Height 5 ft 10 in Weight 238 lb BMI 34.1 BP 110/70 Comment Pt had telehealth Intake Visit Reasons: Iphone f/u labs,DM,HTN Iphone [phone] Intake Note: Pt is having a TH visit to discuss lab results for DM: B/P this morning was 110/70 Allergies doxycycline Allergy (Unknown, Verified 07/08/24 11:24) stomach upset Medication List - Last Reconciled 07/08/24 by Isi Carbajal MD alprazolam 0 mg PO benazepril 10 mg PO DAILY cetirizine 10 mg PO DAILY escitalopram oxalate 20 mg PO DAILY melatonin 5 mg PO BEDTIME metformin 1,000 mg PO BID prazosin 5 mg PO BEDTIME pyridoxine (vitamin B6) 100 mg PO DAILY 90 days rosuvastatin 5 mg PO DAILY tirzepatide (Mounjaro) 2.5 mg (0.5 mL) subcut QWEEK 4 weeks Tobacco use date assessed: 07/08/24 Dental Screening Dental Screen Date: 07/08/24 Did you have a dental visit in the last 12 months?: Yes Did you have a dental problem in the last 6 months where you did not have access to dental care?: No Was dental information given to patient?: Patient has dentist HPI HPI Comments History of Present Illness Details Teleheath visit today with [id number] male presenting with multiple chronic conditions for ongoing management. He has a history of essential hypertension, currently managed with benazepril 10 mg daily with Blood pressure within normal limits . His type 2 diabetes mellitus is being treated with Mounjaro 2.5 mg and metformin 1000 mg twice daily, which has led to significant improvement; his hemoglobin A1c has decreased from 8.8% in March to 5.2% as of July 07. The patient's hyperlipidemia is controlled with rosuvastatin 5 mg, with triglycerides reduced from 317 mg/dL to 156 mg/dL. He also discontinued Se roquel due to adverse interaction with Mounjaro. His insomnia was previously addressed with zolpidem, which he has stopped taking, no longer needs it , continues to take melatonin as needed . He reports taking prazosin 5 mg at bedtime, and alprazolam 1 mg for anxiety. He was recently started vitamin B6 for kidney stonesby his urologust. The patient experiences seasonal allergies and uses cetirizine as needed. He has also lost approximately 20 pounds since March, reporting reduced portion sizes and an effort to exercise more. [facility] Medical History Diabetes mellitus with microalbuminuria, without long-term current use of insulin Mixed dyslipidemia Depression, major, recurrent MICKEY on CPAP Morbid obesity with body mass index (BMI) greater than or equal to 70 in adult Essential hypertension Surgical History No pertinent past surgical history Social History Housing: House Patient Tobacco Use Status: Never used Tobacco e-Cigarette/Vaping Use: Never Used Current occupational status: retired Cognitive needs: No Hearing needs: No Vision needs: Yes Questionnaire Thrive Questionnaire Date Thrive assessed: 03/15/24 GROVER-7 AMB Questionnaire GROVER-7 Date GROVER - 7 assessed: 03/22/24 Source: Developed by Drs. Amado Yoder, Barbara Kellogg, Luis Angel Kerns and colleagues, with an educational frances from [employer] Review of Systems Const Denies fatigue Eyes Details: ff'd by Dr Morrow ENT Reports no additional complaints Card Denies chest pain, Denies irregular heart rhythm, Denies leg edema and Denies palpitations Resp Reports no additional complaints GI Reports no additional complaints Reports as per HPI Musc Reports no additional complaints Neuro Reports no additional complaints Psych Reports no additional complaints Endo Denies fatigue, Denies polyphagia, Denies polydipsia, Denies polyuria and Denies palpitations Messi/Lymph Reports no additional complaints Aller/Immun Reports as per HPI Physical exam (Primary Care) Vital Signs: Last Vital Signs BP 110/70 07/08/24 09:26 BMI result Body Mass Index 34.1 Tobacco/Smoking Status: Tobacco use Status Tobacco use date assessed 07/08/24 07/08/24 09:24 Patient Tobacco Use Status Never used Tobacco 07/08/24 09:24 e-Cigarette/Vaping Use Never Used 07/08/24 09:24 Thrive Assessment: Date of Thrive Assessment Date Thrive assessed 03/15/24 07/08/24 09:24 Telehealth Telehealth Telehealth Platform: [employer] Location of provider rendering services: practice address Location of patient: address on file Patient Identification confirmed using: Name, : Yes Telehealth method: video Patient verbally consented to treatment: Yes Patient verbally consented to billing insurance company: Yes Patient informed of any privacy concerns related to visit: Yes Minutes spent on Phone/Video with Pt.: 15 Results Reviewed Results Reviewed: Laboratory Tests 07/07/24 11:09 Estimat Average Glucose 103 Hemoglobin A1c % 5.2 Name: Nam Angel Age/Sex: 44/M : 1980 Unit#: [id number] Attend Dr: Isi Carbajal MD Re07/07/24 Status: DEP REF Location: [facility] Disch: SPEC : [id number] [place]O: 07/07/24 STATUS: COMP REQ : [id number] RECD: 07/07/[address]: Isi Carbajal MD COMP: 07/07/24 ENTERED: 07/07/24-[address] [facility] [address]: ORDERED: Met Prof Fast, AST, ALT, Lipid Panel Test Result Flag Reference Sodium 140 135-145 mmol/L Potassium 3.9 3.3-5.1 mmol/L CL 106 96-108 mmol/L CO2 27 22-29 mmol/L Gap 11 L 12-20 BUN 10 9-16 mg/dL Creat 0.85 0.5-1.4 mg/dL eGFR > 60 Chronic Kidney Disease: Estimated GFR < 60 mL/min/1.73m2 Severe Kidney Disease: Estimated GFR < 15 mL/min/1.73m2 FBS 129 H 60-99 mg/dL A fasting glucose of 126 mg/dl or greater on more than one occasion is considered diagnostic of diabetes. CA 9.6 8.4-10.2 mg/dL AST (GOT) 32 5-37 U/L ALT (GPT) 58 H 0-40 U/L Triglyceride 156 H <150 mg/dL Desirable Triglyceride: less than 150 mg/dL Borderline High Triglyceride 150-199 mg/dL High Triglyceride: 200-499 mg/dL Very High Triglyceride: greater than or equal to 5OO mg/dL Cholesterol 104 <200 mg/dL Desirable Cholesterol: less than 200 mg/dL Borderline High Cholesterol: 200-239 mg/dL High Cholesterol: greater than 239 mg/dL LDL Calculated 46 <100 mg/dL Desirable LDL: less than 100 mg/dL Near Optimal/Above Optimal LDL: 110-129 mg/dL Borderline High LDL: 130-159 mg/dL High LDL: 160-189 mg/dL Very High LDL: greater than or equal to 190 mg/dL HDL 27 L >40 mg/dL Desirable HDL: greater than 40 mg/dL Note: This HDL assay may give artificially low results in patients with liver disease. Coding Level of Care Code Tele Est Pt Level 4 (53648) Complex EM visit Add On G2211 Diagnoses Essential hypertension I10 Morbid obesity with body mass index (BMI) greater than or equal to 70 in adult E66.01; Z68.45 Mixed dyslipidemia E78.2 Diabetes mellitus with microalbuminuria, without long-term current use of insulin E11.29; R80.9 Assessment & Plan Assessment & Plan (1) Essential hypertension: Code(s): I10 - Essential (primary) hypertension Category: Medical (2) Morbid obesity with body mass index (BMI) greater than or equal to 70 in adult: Comment: PATIENT IS GROSSLY OBESE, BUT LOSING WEIGHT. CURRENTLY ON TTIRZEPATIDE ( MOUNJARO ) INJECTIONS AND HE IS THRILLED TO REPORT THAT HE HAS LOST 26 LB SINCE HIS LAST VISIT. Code(s): E66.01 - Morbid (severe) obesity due to excess calories; Z68.45 - Body mass index [BMI] 70 or greater, adult Category: Medical (3) Mixed dyslipidemia: Code(s): E78.2 - Mixed hyperlipidemia Category: Medical (4) Diabetes mellitus with microalbuminuria, without long-term current use of insulin: Code(s): E11.29 - Type 2 diabetes mellitus with other diabetic kidney complication; R80.9 - Proteinuria, unspecified Category: Medical Plan - Essential Hypertension: Continue benazepril 10 mg daily. - Type 2 Diabetes Mellitus: Increase Mounjaro to 5 mg weekly, monitor blood glucose levels closely for hypoglycemia. - Hyperlipidemia: Continue with rosuvastatin 5 mg daily. - Insomnia: Discontinued zolpidem, manage with prazosin 5 mg at bedtime and melatonin as needed. - Allergic Rhinitis: Use cetirizine as needed for allergies. - Kidney Stones: Initiate vitamin B6 supplementation, 100 mg daily, followed by Urology clinic. - Obstructive Sleep Apnea: Follow-up with pulmonary appointment in October. - Depression and Anxiety: Continue escitalopram 20 mg daily and alprazolam 1 mg as needed; plan to monitor, followed by Psychiatry. - Weight Management: Encourage dietary control and increased exercise. I discussed with the patient the improvements in his diabetes and lipid levels due to current medication adherence and lifestyle modifications. We addressed the diabetic management plan by escalating Mounjaro, emphasizing monitoring for hypoglycemia. The patient was made aware of the potential risk of gastrointestinal side effects with Mounjaro. Continued focus on dietary regulation and physical activity was reinforced to aid in weight reduction. Allergic rhinitis and kidney stone care were reviewed, with vitamin B6 added for the latter. I advised on routine follow-ups, upcoming appointments, and further blood work to assess the response to the adjusted regimen. will see him back for a follow upvisist in October 2024 , advised to get fasting labs done at least a week prior to scheduled appointment Patient was informed and verbally consented to the use of an ambient scribe for clinic note documentation during this visit. Orders: Orders Hemoglobin A1c 10/15/24 E11.29 - Type 2 diabetes mellitus with other diabetic kidney complication, E66.01 - Morbid (severe) obesity due to excess calories, E78.2 - Mixed hyperlipidemia, I10 - Essential (primary) hypertension, R80.9 - Proteinuria, unspecified, Z68.45 - Body mass index [BMI] 70 or greater, adult Alanine Aminotransferase 10/15/24 E11.29 - Type 2 diabetes mellitus with other diabetic kidney complication, E66.01 - Morbid (severe) obesity due to excess calories, E78.2 - Mixed hyperlipidemia, I10 - Essential (primary) hypertension, R80.9 - Proteinuria, unspecified, Z68.45 - Body mass index [BMI] 70 or greater, adult Aspartate Amino Transferase 10/15/24 E11.29 - Type 2 diabetes mellitus with other diabetic kidney complication, E66.01 - Morbid (severe) obesity due to excess calories, E78.2 - Mixed hyperlipidemia, I10 - Essential (primary) hypertension, R80.9 - Proteinuria, unspecified, Z68.45 - Body mass index [BMI] 70 or greater, adult Lipid Panel 10/15/24 E11.29 - Type 2 diabetes mellitus with other diabetic kidney complication, E66.01 - Morbid (severe) obesity due to excess calories, E78.2 - Mixed hyperlipidemia, I10 - Essential (primary) hypertension, R80.9 - Proteinuria, unspecified, Z68.45 - Body mass index [BMI] 70 or greater, adult Microalbumin, Random (w Creat) 10/15/24 E11.29 - Type 2 diabetes mellitus with other diabetic kidney complication, E66.01 - Morbid (severe) obesity due to excess calories, E78.2 - Mixed hyperlipidemia, I10 - Essential (primary) hypertension, R80.9 - Proteinuria, unspecified, Z68.45 - Body mass index [BMI] 70 or greater, adult Basic Metabolic Panel Fasting 10/15/24 E11.29 - Type 2 diabetes mellitus with other diabetic kidney complication, E66.01 - Morbid (severe) obesity due to excess calories, E78.2 - Mixed hyperlipidemia, I10 - Essential (primary) hypertension, R80.9 - Proteinuria, unspecified, Z68.45 - Body mass index [BMI] 70 or greater, adult Medications: Changed From tirzepatide (Mounjaro) 2.5 mg (0.5 mL) subcut QWEEK 4 weeks 2 mL 3RF To tirzepatide 5 mg (0.5 mL) subcut QWEEK 4 weeks 2 mL 3RF
[2024-07-08 09:26] VITALS: BP 110/70; BMI 34.1
== END 2024-07-08 16:52 | disposition home or self-care (01) ==
LOC: HO.HMCC 11:01
PROVIDERS: PCP Internal Medicine; Visit Provider Internal Medicine
DX: I10 Essential (primary) hypertension (principal); E66.01 Morbid (severe) obesity due to excess calories; Z68.45 Body mass index [BMI] 70 or greater, adult; E11.29 Type 2 diabetes mellitus with other diabetic kidney complication; E78.2 Mixed hyperlipidemia; R80.9 Proteinuria, unspecified

== ENCOUNTER → 2024-07-08 11:01 | Outpatient (BNVA) | payer OTHER, SELFPAY | PROVIDERS: PCP Internal Medicine; Visit Provider Internal Medicine ==

== ENCOUNTER 2025-04-21 09:36 | Outpatient (REF) | payer OTHER, SELFPAY ==
--- OUTSIDE RECORDS SUMMARY | 2025-04-21 10:18 | XMS_ITS | Patient Health Record ---
Author Organization [facility] Address [address] [place] [address] Care Team Providers Care Professional Services Manager Name Role Phone Isi Carbajal Primary Care Provider Unavailab Nick Hobbs Unavailable [phone] Fernando Rosado Unavailable [phone] Allergies Allergen (clinical drug ingredient) Drug/Non Drug Allergy documented on EMR Reaction Allergy Type Onset Date Status doxycycline Doxycycline stomach ache Drug Allergy Active Reason For Referral No Information Medications Medication SIG (Take, Route, Frequency, Duration) Notes Start Date End Date Status Zolpidem Tartrate 10 MG 1 tablet at bedt rocío as needed Orally Once a day Active Cholecalciferol 125 MCG (5000 UT) 1 tablet Orally Once a day Active traMADol HCl 50 MG 1 tablet as needed Orally three times daily Prn Active Baclofen 10 MG 1 tablet as needed Orally Three times a day Active metFORMIN HCl 1000 MG 1 tablet with a me al Orally twice a day Active Prazosin HCl 5 MG 1 capsule at bedtime Orally Once a day Active Prazosin HCl 5 MG 2 capsules at bedtim e Orally at HS Active QUEtiapine Fumarate 50 MG 1 tablet at be dtime Orally Once a day in the AM Active ALPRAZolam 1 MG 1 tablet Orally 4 ti mes a day Active Benazepril HCl 10 MG 1 tablet Orally Onc e a day Active Cetirizine HCl 10 MG 1 tablet Orally Onc e a day Active Escitalopram Oxalate 20 MG 1 tablet Oral ly Once a day Active Mounjaro 2.5 MG/0.5ML as directed Subcutaneous weekly once a week Active Melatonin 5 MG 1 tablet in the even ing Orally Once a day Active Immunizations Vaccine Route Administration Date Status Comme nts Flu Vac (Fluzone /Alfuria) QIV PFS Unknown 05/30/2022 A dministered Social History Tobacco Use: Social History Observation Description Date Details (start date - stop date) Former Smoker NA - NA Tobacco Use/Smoking Question Answer Notes Are you a former smoker Alcohol Screen Question Answer Notes Did you have a drink containing alcohol in the p ast year? No Points 0 Interpretation Negative Tobacco use other than smoking: Question Answer Notes Are you an other tobacco user? No Section Notes: Lives with sister who is his informal support Lives with sister who is his informal support. Member denies smoking, alcohol use, or illicit drug use. Intermittent edible marijuana for pain. Problems Problem Type SNOMED Code ICD Code Onset Dates Problem Status W/U Status Risk Notes Problem Gastro-esophageal reflux disease without esophagitis (380739935) Gastro-esophageal reflux disease without esophagitis (K21.9) Active confirmed Problem Obstructive sleep apnea syndrome (59296425) MICKEY on CPAP (G47.33) Active confirmed Problem Chronic pain (89719155) Other chronic pain (G89.29) Active confirmed Problem Schizoaffective disorder, bipolar type (86099752) Schizoaffective disorder, bipolar type (F25.0) Active confirmed Problem Vitamin D deficiency (30528208) Vitamin D deficiency (E55.9) Active confirmed Problem Walking disability (252830181) Difficulty in walking (R26.2) Active confirmed Problem Generalized anxiety disorder (00628480) GROVER (generalized anxiety disorder) (F41.1) Inactive confirmed Problem Annual health maintenance examination (30293630) Annual physical exam (Z00.00) Active confirmed Problem History of urinary stone (553465147) H/O renal calculi (Z87.442) Active confirmed Problem Insomnia disorder related to another mental disorder (68296210) Insomnia due to other mental disorder (F51.05) Inactive confirmed Problem High risk drug monitoring 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 (778780588) 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 analgesic (Z79.891) Active confirmed Problem Essential hypertension (36148740) Benign essential HTN (I10) Active confirmed Problem History of fall (003474043) H/O fall (Z91.81) Active confirmed Problem Lumbosacral spondylosis without myelopathy (56769061) Spondylosis without myelopathy or radiculopathy, lumbar region (M47.816) Active confirmed Problem Chronic post-traumatic stress disorder (708217277) Chronic post-traumatic stress disorder (F43.12) Active confirmed Problem Tobacco user (209478692) Cigarette nicotine dependence in remission (F17.211) Problem resolved confirmed Problem Panic disorder with agoraphobia (01251685) 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 Problem Hyperlipidaemia (54595732) Hyperlipidemia, unspecified hyperlipidemia type (E78.5) Active confirmed Problem Moderate recurrent major depression (45830952) Moderate episode of recurrent major depressive disorder (F33.1) Inactive confirmed Problem Allergic rhinitis caused by pollen (88292976) Seasonal allergic rhinitis due to pollen (J30.1) Active confirmed Problem Polyneuropathy due to type 2 diabetes mellitus (351525662) Type 2 diabetes mellitus with diabetic polyneuropathy, without long-term current use of insulin (E11.42) Active confirmed Problem Carpal tunnel syndrome (05912049) Carpal tunnel syndrome, bilateral upper limbs (G56.03) Active confirmed Problem Long-term current use of drug therapy (911300564) halfway (current) use of oral hypoglycemic drugs (Z79.84) Active confirmed Problem Nondependent cannabis abuse (759947054) Marijuana use (F12.90) Inactive confirmed Problem Tobacco user (237057005) Vaping nicotine dependence, 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) Active confirmed Problem Rheumatoid arthritis (12108926) Rheumatoid arthritis, involving unspecified site, unspecified whether rheumatoid factor present (M06.9) Active confirmed Problem History of disease caused by Severe acute respiratory syndrome coronavirus 2 (situation) (39020446209725388 5) Personal history of COVID-19 (Z86.16) Inactive confirmed Problem Partially vaccinated for COVID-19 (Z28.311) Inactive confirmed Vital Signs Height-cm 177.8 cm 10/19/2024 Weight-kg 108.86 kg 10/19/2024 Height 70 in 10/19/2024 Weight 240 lbs 10/19/2024 BMI 34.43 kg/m2 10/19/2024 Encounters Encounter Location Date Provider Diagnosis [address] [address] 10/19/2024 Fernando Rosado Annual physical exam Z00.00 ; Benign essential HTN I10 ; Hyperlipidemia, unspecified hyperlipidemia type E78.5 ; Type 2 diabetes mellitus with diabetic polyneuropathy, without long-term current use of insulin E11.42 ; halfway (current) use of oral hypoglycemic drugs Z79.84 ; Schizoaffective disorder, bipolar type F25.0 ; Chronic post-traumatic stress disorder F43.12 ; Agoraphobia with panic disorder F40.01 ; MICKEY on CPAP G47.33 ; Seasonal allergic rhinitis due to pollen J30.1 ; Gastro-esophageal reflux disease without esophagitis K21.9 ; Rheumatoid arthritis, involving unspecified site, unspecified whether rheumatoid factor present M06.9 ; Other chronic pain G89.29 ; halfway (current) use of opiate analgesic Z79.891 ; Carpal tunnel syndrome, bilateral upper limbs G56.03 ; Spondylosis without myelopathy or radiculopathy, lumbar region M47.816 ; Difficulty in walking R26.2 ; H/O renal calculi Z87.442 ; H/O fall Z91.81 ; Vitamin D deficiency E55.9 and Vaping nicotine dependence, non-tobacco product F17.200 Assessments Encounter Date Diagnosis (ICD Code) Assessment Notes Treatment Notes Treatment Clinical Notes Section Notes 10/19/2024 Annual physical exam (ICD-10 - Z00.00) 10/19/2024 Benign essential HTN (ICD-10 - I10) 10/19/2024 Hyperlipidemia, unspecified hyperlipidemia type (ICD-10 - E78.5) 10/19/2024 Type 2 diabetes mellitus with diabetic polyneuropathy, without long-term current use of insulin (ICD-10 - E11.42) 10/19/2024 halfway (current) use of oral hypoglycemic drugs (ICD-10 - Z79.84) 10/19/2024 Schizoaffective disorder, bipolar type (ICD-10 - F25.0) 10/19/2024 Chronic post-traumatic stress disorder (ICD-10 - F43.12) 10/19/2024 Agoraphobia with panic disorder (ICD-10 - F40.01) 10/19/2024 MICKEY on CPAP (ICD-10 - G47.33) 10/19/2024 Seasonal allergic rhinitis due to pollen (ICD-10 - J30.1) 10/19/2024 Gastro-esophageal reflux disease without esophagitis (ICD-10 - K21.9) 10/19/2024 Rheumatoid arthritis, involving unspecified site, unspecified whether rheumatoid factor present (ICD-10 - M06.9) 10/19/2024 Other chronic pain (ICD-10 - G89.29) 10/19/2024 halfway (current) use of opiate analgesic (ICD-10 - Z79.891) 10/19/2024 Carpal tunnel syndrome, bilateral upper limbs (ICD-10 - G56.03) 10/19/2024 Spondylosis without myelopathy or radiculopathy, lumbar region (ICD-10 - M47.816) 10/19/2024 Difficulty in walking (ICD-10 - R26.2) 10/19/2024 H/O renal calculi (ICD-10 - Z87.442) 10/19/2024 H/O fall (ICD-10 - Z91.81) 10/19/2024 Vitamin D deficiency (ICD-10 - E55.9) 10/19/2024 Vaping nicotine dependence, non-tobacco product (ICD-10 - F17.200) Plan Of Treatment No Information Insurance Providers Payer Name Payer Address Payer Phone Subscriber Number Group Number Insured Name Patient Relationship to Insured Coverage Start Date Coverage End Date [address] [phone] [id number] WILFRID SERRATO Self - patient is the insured [address] [phone] [id number] WILFRID SERRATO Self - patient is the insured 0 0 Medical (General) History Medical History History ICD Code Bipolar 1 disorder F31.9 Schizophrenia F20.9 Chronic posttraumatic stress syndrome F4 3.10 Kidney stone N20.0 Frequent urination R35.0 Cigarette nicotine dependence in remissi on (resolved 03/27/2023) undefined Personal history of COVID-19 Z86.16 Partially vaccinated for COVID-19 Z28.31 1 Surgical History Surgery Date(Month/Year) Lithotripsy 03/05 Fistulotomy 2020 Hospitalization History Reason Date(Month/Year) Mbr disclosed psychiatric ho spitalization in 2013 for SA due to depression. Lives in [place] at the time
[2025-04-21 13:44] LABS: Hemoglobin A1C 123.7648 umol/L; Total Hemoglobin (HGBA1C) 3737.0122 umol/L
[2025-04-21 13:48] LABS: Alanine Aminotransferase 55 U/L (0-40); Anion Gap 11 (12-20); Aspartate Amino Transferase 31 U/L (5-37); Blood Urea Nitrogen 11 mg/dL (9-16); Calcium 9.2 mg/dL (8.4-10.2); Carbon Dioxide 26 mmol/L (22-29); Chloride 106 mmol/L (96-108); Cholesterol 192 mg/dL (<200); Estimated Glomerular Filt Rate > 60; HDL Cholesterol 27 mg/dL (>40); Potassium 3.9 mmol/L (3.3-5.1); Sodium 139 mmol/L (135-145); Triglycerides 210 mg/dL (<150)
[2025-04-21 14:00] LABS: Microalbum/Creatinine Ratio Ur 13.0 ug/mg cr (<30)
== END 2025-04-21 09:37 | disposition home or self-care (01) ==
LOC: HO.HMGCLDS 09:36
PROVIDERS: PCP Internal Medicine; Visit Provider Internal Medicine
DX: I10 Essential (primary) hypertension (principal); E78.2 Mixed hyperlipidemia; E11.29 Type 2 diabetes mellitus with other diabetic kidney complication; R80.9 Proteinuria, unspecified; E66.01 Morbid (severe) obesity due to excess calories; Z68.45 Body mass index [BMI] 70 or greater, adult
CPT/HCPCS: 36415; 80048; 80061; 82043; 82570; 83036; 84450; 84460

== ENCOUNTER 2025-04-24 13:26 | Outpatient (AMB) | payer OTHER, SELFPAY ==
[2025-04-24 13:31] VITALS: BP 114/68; PULSE 88; O2SAT 98; BMI 36.1
--- NOTE | 2025-04-24 13:31 | MHC.OFFVIS ---
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 Accompanied by: Spouse Allergies doxycycline Allergy (Unknown, Verified 04/24/25 13:37) stomach upset Medication List - Last Reconciled 04/24/25 by Renato Finnegan MD alprazolam 0 mg PO benazepril 10 mg PO DAILY cetirizine 10 mg PO DAILY escitalopram oxalate 20 mg PO DAILY melatonin 5 mg PO BEDTIME metformin 1,000 mg PO BID prazosin 5 mg PO BEDTIME pyridoxine (vitamin B6) 100 mg PO DAILY 90 days rosuvastatin 5 mg PO DAILY tirzepatide 5 mg (0.5 mL) subcut QWEEK 4 weeks Do you need a note to return to daycare/school/sports/work: No HPI HPI Obstructive sleep apnea: Details: Nam is 45 years old very pleasant gentleman, grossly obese and with diagnosis of obstructive sleep apnea. He uses CPAP very regularly every, night and sleeps good . He say is that actually without the CPAP he just can not sleep. He gets at least 7-8 hours sleep every night. Since he got his new CPAP device more than 6 months ago, he did not get any new supplies. ( most likely due to [employer] Understanding or miscommunication.) His weight has gone up by 13 lb since last visit. This is in spite of the fact that he is on tirzepatide injections every month. He admits that he is addicted to candy is, and during the daytime he is eating lot of candy is ( this is a behavior issue) [facility]LY [facility] Medical History (Updated 04/24/25 @ 13:52 by Renato Finnegan MD) Obesity (BMI 30-39.9) Diabetes mellitus with microalbuminuria, without long-term current use of insulin Mixed dyslipidemia Depression, major, recurrent MICKEY on CPAP Morbid obesity with body mass index (BMI) greater than or equal to 70 in adult Essential hypertension Surgical History No pertinent past surgical history Social History Housing: House Patient Tobacco Use Status: Never used Tobacco e-Cigarette/Vaping Use: Never Used Current occupational status: retired Cognitive needs: No Hearing needs: No Vision needs: Yes Review of Systems Const All systems reviewed & are unremarkable except as noted in HPI and below Eyes Reports no additional complaints ENT Reports no additional complaints Card Denies chest pain, Denies irregular heart rhythm and Denies leg edema Resp Reports no additional complaints GI Reports no additional complaints Musc Reports no additional complaints Neuro Reports no additional complaints and Reports Abnormal speech present Psych Reports no additional complaints and Reports depression (CONTROLLED WITH MED.) Messi/Lymph Reports no additional complaints Physical Exam Vital Signs: BMI result Body Mass Index 36.1 Const Other: HE IS GROSSLY OBESE WITH A ROUND FACE AND VERY LARGE NECK. 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 General: comfortable, no acute distress, alert and awake Orientation/consciousness: patient oriented x3 HEENT Other: HAS A BULKY PEAK, ROUND FACE AND A LARGE OBESE NECK. Head: Yes normal to inspection General nose exam: No nasal polyps present and No nasal discharge present Face and sinus: Yes sinuses nontender Mouth: oropharynx abnormals (OROPHARYNX IS CROWDED AND NARROW WITH MALLAMPATI CLASS 4) Throat: Yes posterior oropharynx normal Eyes General: appearance normal, both eyes and all related structures Neck Neck: Yes normal visual inspection, Yes no lymphadenopathy, Yes trachea midline, Yes no JVD and Yes other (EXTREMELY OBESE) Thyroid: Thyroid normal Chest Chest palpation & inspection: normal inspection of the chest, normal palpation of entire chest wall and no tenderness Resp Effort & Inspection: normal respiratory effort Auscultation: clear to auscultation bilaterally, no crackles and no wheezes Cardio Palpation: PMI not normal (PMI NOT PALPABLE) Rate: regular rate Rhythm: regular rhythm Heart sounds: Gallop heart sound present and Murmur heart sound present Peripheral pulses: Peripheral pulses 2+ throughout GI Palpation (GI): Soft to palpation, nontender, No hepatosplenomegaly present, no masses and Other GI palpation findings present (ABDOMEN IS GROSSLY OBESE AND PENDULOUS) Auscultation: normal bowel sounds Back/Spine/Pelvis Thoracic/Lumbar Spine: thoracic and lumbar spine normal to inspection Skin General skin exam: no rashes or lesions noted Neuro General: patient oriented x3 and no focal motor deficits Cranial nerves: Yes CN's II-XII intact bilaterally Speech: Abnormal speech present Extrem General: Yes normal to inspection, Yes no clubbing, cyanosis or edema, Yes no calf tenderness and Yes venous stasis dermatitis Psych Appearance: grossly normal and well kempt Speech and movement: Normal speech and movement present Results Reviewed Results Reviewed: Compliance report for the last 30 nights is reviewed and he has used the CPAP 100% of the night. Average use it per night 7 hours 46 minutes. Pressure 14 cm, using fullface mask, there is a mild air leak. Residual AHI 0.1 Assessment & Plan Assessment & Plan (1) Obesity (BMI 30-39.9): Comment: .He is grossly obese Had lost weight with tirzepatide injection , but now gained 13 lb during the last 6 months. Admits that he has addiction to being candies. Code(s): E66.9 - Obesity, unspecified Category: Medical Plan: Had a good discussion, encouraged to switch candies to some fruit veggies . Continue on tirzepatide therapy. (2) MICKEY on CPAP: Comment: HE IS KNOWN TO HAVE OBSTRUCTIVE SLEEP APNEA SINCE 2017. GOT THE NEW CPAP MACHINE AND HE IS USING IT VERY REGULARLY. HIS COMPLIANCE IS 100%. HE SLEEPS GOOD Code(s): G47.33 - Obstructive sleep apnea (adult) (pediatric); Z99.89 - Dependence on other enabling machines and devices Category: Medical Plan: COMMENDED FOR GOOD COMPLIANCE. NEEDS NEW SUPPLIES WHICH ARE BEING ORDERED. Coding Level of Care Code Est Pt Level 3 (34643) Diagnoses Obesity (BMI 30-39.9) E66.9 MICKEY on CPAP G47.33; Z99.89
--- OUTSIDE RECORDS SUMMARY | 2025-04-24 15:44 | XMS_ITS | Patient Health Record ---
Author Organization [facility] Address [address] [place] [address] Care Team Providers Care Fur Examiner Name Role Phone Isi Carbajal Primary Care Provider Unavailab Nick Hobbs Unavailable [phone] Fernando Rosado Unavailable [phone] Allergies Allergen (clinical drug ingredient) Drug/Non Drug [...] Notes Problem Gastro-esophageal reflux disease without esophagitis (747056193) Gastro-esophageal reflux disease without esophagitis (K21.9) Active confirmed Problem Obstructive sleep apnea syndrome (54254396) MICKEY on CPAP (G47.33) Active confirmed Problem Chronic pain (12375043) Other chronic pain (G89.29) Active confirmed Problem Schizoaffective disorder, bipolar type (55581650) Schizoaffective disorder, bipolar type (F25.0) Active confirmed Problem Vitamin D deficiency (64682138) Vitamin D deficiency (E55.9) Active confirmed Problem Walking disability (358791781) Difficulty in walking (R26.2) Active confirmed Problem Generalized anxiety disorder (07785822) GROVER (generalized anxiety disorder) (F41.1) Inactive confirmed Problem Annual health maintenance examination (82318747) Annual physical exam (Z00.00) Active confirmed Problem History of urinary stone (947630357) H/O renal calculi (Z87.442) Active confirmed Problem Insomnia disorder related to another mental disorder (98760728) Insomnia due to other mental disorder (F51.05) Inactive confirmed Problem High risk drug monitoring status (853013328) aromatherapist (current) use of opiate analgesic (Z79.891) Active confirmed Problem Essential hypertension (48824682) Benign essential HTN (I10) Active confirmed Problem History of fall (590054143) H/O fall (Z91.81) Active confirmed Problem Lumbosacral spondylosis without myelopathy (85501236) Spondylosis without myelopathy or radiculopathy, lumbar region (M47.816) Active confirmed Problem Chronic post-traumatic stress disorder (150187883) Chronic post-traumatic stress disorder (F43.12) Active confirmed Problem Tobacco user (487105097) Cigarette nicotine dependence in remission (F17.211) Problem resolved confirmed Problem Panic disorder with agoraphobia (79602276) 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 Problem Hyperlipidaemia (93991132) Hyperlipidemia, unspecified hyperlipidemia type (E78.5) Active confirmed Problem Moderate recurrent major depression (26068930) Moderate episode of recurrent major depressive disorder (F33.1) Inactive confirmed Problem Allergic rhinitis caused by pollen (56727234) Seasonal allergic rhinitis due to pollen (J30.1) Active confirmed Problem Polyneuropathy due to type 2 diabetes mellitus (338495363) Type 2 diabetes mellitus with diabetic polyneuropathy, without long-term current use of insulin (E11.42) Active confirmed Problem Carpal tunnel syndrome (94270269) Carpal tunnel syndrome, bilateral upper limbs (G56.03) Active confirmed Problem Long-term current use of drug therapy (384371739) senior living (current) use of oral hypoglycemic drugs (Z79.84) Active confirmed Problem Nondependent cannabis abuse (351190416) Marijuana use (F12.90) Inactive confirmed Problem Tobacco user (346537848) Vaping nicotine dependence, 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) Active confirmed Problem Rheumatoid arthritis (53185976) Rheumatoid arthritis, involving unspecified site, unspecified whether rheumatoid factor present (M06.9) Active confirmed Problem History of disease caused by Severe acute respiratory syndrome coronavirus 2 (situation) (39188097307619044 5) Personal history of COVID-19 (Z86.16) Inactive confirmed Problem Partially vaccinated for COVID-19 (Z28.311) Inactive confirmed Vital Signs Height-cm 177.8 cm 10/19/2024 Weight-kg 108.86 kg 10/19/2024 Height 70 in 10/19/2024 Weight 240 lbs 10/19/2024 BMI 34.43 kg/m2 10/19/2024 Encounters Encounter Location Date Provider Diagnosis [address] [address] 10/19/2024 Fernando Rosado Annual physical exam Z00.00 ; Benign essential HTN I10 ; Hyperlipidemia, unspecified hyperlipidemia type E78.5 ; Type 2 diabetes mellitus with diabetic polyneuropathy, without long-term current use of insulin E11.42 ; senior living (current) use of oral hypoglycemic drugs Z79.84 ; Schizoaffective disorder, bipolar type F25.0 ; Chronic post-traumatic stress disorder F43.12 ; Agoraphobia with panic disorder F40.01 ; MICKEY on CPAP G47.33 ; Seasonal allergic rhinitis due to pollen J30.1 ; Gastro-esophageal reflux disease without esophagitis K21.9 ; Rheumatoid arthritis, involving unspecified site, unspecified whether rheumatoid factor present M06.9 ; Other chronic pain G89.29 ; senior living (current) use of opiate analgesic Z79.891 ; [...] use of insulin (ICD-10 - E11.42) 10/19/2024 senior living (current) use of oral hypoglycemic drugs (ICD-10 [...] Other chronic pain (ICD-10 - G89.29) 10/19/2024 senior living (current) use of opiate analgesic (ICD-10 - [...] Insured Coverage Start Date Coverage End Date [address] [id number] WILFRID SERRATO Self - patient is the insured [address] [phone] [id number] WILFRID SERRATO Self - patient is the [...] for SA due to depression. Lives in [place] at the time
== END 2025-04-24 13:45 | disposition home or self-care (01) ==
LOC: HO.HPS 13:27
PROVIDERS: PCP Internal Medicine; Visit Provider Internal Medicine
DX: E66.9 Obesity, unspecified (principal); G47.33 Obstructive sleep apnea (adult) (pediatric); Z99.89 Dependence on other enabling machines and devices
CPT/HCPCS: 99213

== ENCOUNTER → 2025-04-24 13:26 | Outpatient (BNVA) | payer OTHER, SELFPAY | PROVIDERS: PCP Internal Medicine; Visit Provider Internal Medicine | DX: G47.33 Obstructive sleep apnea (adult) (pediatric) (principal); E66.9 Obesity, unspecified; Z99.89 Dependence on other enabling machines and devices | CPT/HCPCS: 99212 ==

== ENCOUNTER 2025-04-28 08:31 | Outpatient (AMB) | payer OTHER, SELFPAY ==
--- NOTE | 2025-04-28 08:29 | A.OFFPC_ITS ---
Intake Visit Reasons: Labs Review Allergies doxycycline Allergy (Unknown, Verified 04/28/25 08:47) stomach upset Medication List - Last Reconciled 04/28/25 by Isi Carbajal MD alprazolam 0 mg PO benazepril 10 mg PO DAILY cetirizine 10 mg PO DAILY escitalopram oxalate 20 mg PO DAILY melatonin 5 mg PO BEDTIME metformin 1,000 mg PO BID prazosin 5 mg PO BEDTIME pyridoxine (vitamin B6) 100 mg PO DAILY 90 days rosuvastatin 5 mg PO DAILY tirzepatide 5 mg (0.5 mL) subcut QWEEK 4 weeks Tobacco use date assessed: 04/28/25 Dental Screening Dental Screen Date: 04/28/25 Did you have a dental visit in the last 12 months?: Yes Did you have a dental problem in the last 6 months where you did not have access to dental care?: No Was dental information given to patient?: Patient has dentist HPI Labs Review HPI Details - 45-year-old male presenting today via telehealth for follow-up on his hyperlipidemia, and type 2 diabetes mellitus - Hyperlipidemia: The patient's LDL chol esterol increased significantly from 46 mg/dL to 123 mg/dL despite being on rosuvastatin 5 mg daily. Triglycerides also increased from 156 mg/dL to 210 mg/dL, and total cholesterol john from 104 mg/dL to 192 mg/dL. - The patient admits to poor dietary habits, including excessive snacking and consumption of sweets, which may have contributed to these changes. - Type 2 Diabetes Mellitus: The patient' s blood glucose levels are well- controlled with an A1c of 5.2%. He is currently on metformin and Mounjaro 5 mg weekly - The patient reports overeating and lac k of exercise, and weight increased by approximately 20 lb since June 2024 - Preventative care: The patient is due for a flu vaccination and has been advised to schedule it. [facility] Medical History Obesity (BMI 30-39.9) Diabetes mellitus with microalbuminuria, without long-term current use of insulin Mixed dyslipidemia Depression, major, recurrent MICKEY on CPAP Morbid obesity with body mass index (BMI) greater than or equal to 70 in adult Essential hypertension Surgical History No pertinent past surgical history Social History Housing: House Patient Tobacco Use Status: Never used Tobacco e-Cigarette/Vaping Use: Never Used Current occupational status: retired Cognitive needs: No Hearing needs: No Vision needs: Yes Questionnaire PHQ-9 Over the last 2 weeks, how often have you been bothered by any of the following problems? 1. Little interest or pleasure in doing things: not at all 2. Feeling down, depressed, or hopeless: not at all 3. Trouble falling or staying asleep, or sleeping too much: not at all 4. Feeling tired or having little energy: not at all 5. Poor appetite or overeating: not at all 6. Feeling bad about yourself - or that you are a failure or have let yourself or your family down: not at all 7. Trouble concentrating on things, such as reading the newspaper or watching television: not at all 8. Moving or speaking so slowly that other people could have noticed. Or the opposite - being so fidgety or restless that you have been moving around a lot more than usual: not at all 9. Thoughts that you would be better off or of hurting yourself in some way: not at all Total score: 0 Depression Screening Interpretation: Negative Depression Screening Done: Yes 94764 - PHQ-9 Billing: Yes Source: Developed by Drs. Amado Yoder, Barbara Kellogg, Luis Angel Kerns and colleagues, with an educational frances from [employer]. Thrive Questionnaire Date Thrive assessed: 04/27/25 I am a: Patient What is your living situation today?: I choose not to answer this question Within the past 12 months, did the food you bought not last and you didn't have the money to get more?: Often true Within the past 12 months, did you worry whether your food would run out before you got money to buy more?: Often true Do you have trouble paying for medicines?: Yes Do you have trouble getting transportation to medical appointments?: Yes Do you have trouble paying your heating and electricity bill?: Yes Do you have trouble taking care of your child, family member or friend?: Yes Do you have trouble with day-to-day activities such as bathing, preparing meals, shopping, managing finances, etc.?: Yes Are you currently unemployed and looking for a job?: No Are you interested in more education?: No Currently or been in a relationship where the following occur: I choose not to answer THRIVE Score: 4 AUDIT C Alcohol Use Questionnaire (AUDIT-C) 1. How often do you have a drink containing alcohol?: Never 2. How many drinks containing alcohol do you have on a typical day when you are drinking?: 1 or 2 3. How often do you have six or more drinks on one occasion?: Never Total Score: 0 Score Reviewed/Action Taken: Yes GROVER-7 AMB Questionnaire GROVER-7 Date GROVER - 7 assessed: 04/28/25 Feeling nervous, anxious, or on edge: 0 = Not at all Not being able to stop or control worryin = Not at all Worrying too much about different things: 0 = Not at all Trouble relaxin = Not at all Being so restless that it is hard to sit still: 0 = Not at all Becoming easily annoyed or irritable: 0 = Not at all Feeling afraid as if something awful might happen: 0 = Not at all Total GROVER-7 score (0-4 normal; 5-9 mild; 10-14 moderate; 15-21 severe): 0 Source: Developed by Drs. Amado Yoder, Barbara Kellogg, Luis Angel Kerns and colleagues, with an educational frances from [employer]. GROVER-7 Assessment Billing GROVER-7 Assessment Tool: GROVER-7 Assessment 58041 Review of Systems Const All systems reviewed & are unremarkable except as noted in HPI and below Eyes Details: He sees Dr. Morrow for his routine eye exam and diabetic retinopathy screening Reports requires corrective lenses ENT Reports no additional complaints Card Denies chest pain, Denies irregular heart rhythm and Denies leg edema Resp Reports no additional complaints GI Reports no additional complaints Reports no additional complaints Musc Reports no additional complaints Neuro Reports no additional complaints and Reports Abnormal speech present Psych Reports no additional complaints and Reports depression (CONTROLLED WITH MED.) Endo Reports no additional complaints Messi/Lymph Reports no additional complaints Physical exam (Primary Care) Tobacco/Smoking Status: Tobacco use Status Tobacco use date assessed 04/28/25 04/28/25 08:31 Patient Tobacco Use Status Never used Tobacco 04/28/25 08:31 e-Cigarette/Vaping Use Never Used 04/28/25 08:31 PHQ-9: PHQ-9 Score PHQ-9: Total score 0 04/28/25 08:48 Depression Screening Interpretation: Negative Thrive Assessment: Date of Thrive Assessment Date Thrive assessed 04/27/25 04/28/25 08:31 Currently or been in a relationship where the following occur: I choose not to answer Neuro Speech: Abnormal speech present Telehealth Telehealth Telehealth Platform: [employer] Location of provider rendering services: practice address Location of patient: address on file Patient Identification confirmed using: Name, : Yes Telehealth method: video Patient verbally consented to treatment: Yes Patient verbally consented to billing insurance company: Yes Patient informed of any privacy concerns related to visit: Yes Minutes spent on Phone/Video with Pt.: 15 Results Reviewed Results Reviewed: Name: Nam Angel Age/Sex: 45/M : 1980 Unit#: [id number] Attend Dr: Isi Carbajal MD Re04/21/25 Status: DEP [facility] Disch: SPEC : [id number] YOKO: 04/21/25 STATUS: COMP REQ : [id number] RECD: 04/21/[address]: Isi Carbajal MD COMP: 04/21/25 ENTERED: 04/21/[address]: ORDERED: Met Prof Fast, AST, ALT, Lipid Panel Test Result Flag Reference Sodium 139 135-145 mmol/L Potassium 3.9 3.3-5.1 mmol/L CL 106 96-108 mmol/L CO2 26 22-29 mmol/L Gap 11 L 12-20 BUN 11 9-16 mg/dL Creat 0.94 0.5-1.4 mg/dL eGFR > 60 Chronic Kidney Disease: Estimated GFR < 60 mL/min/1.73m2 Severe Kidney Disease: Estimated GFR < 15 mL/min/1.73m2 FBS 104 H 60-99 mg/dL A fasting glucose from 100-125 mg/dl is considered impaired (pre-diabetes). CA 9.2 8.4-10.2 mg/dL AST (GOT) 31 5-37 U/L ALT (GPT) 55 H 0-40 U/L Triglyceride 210 H <150 mg/dL Desirable Triglyceride: less than 150 mg/dL Borderline High Triglyceride 150-199 mg/dL High Triglyceride: 200-499 mg/dL Very High Triglyceride: greater than or equal to 5OO mg/dL Cholesterol 192 <200 mg/dL Desirable Cholesterol: less than 200 mg/dL Borderline High Cholesterol: 200-239 mg/dL High Cholesterol: greater than 239 mg/dL LDL Calculated 123 H <100 mg/dL Desirable LDL: less than 100 mg/dL Near Optimal/Above Optimal LDL: 110-129 mg/dL Borderline High LDL: 130-159 mg/dL High LDL: 160-189 mg/dL Very High LDL: greater than or equal to 190 mg/dL HDL 27 L >40 mg/dL Desirable HDL: greater than 40 mg/dL Note: This HDL assay may give artificially low results in patients with liver disease. Laboratory Tests 04/21/25 09:39 Estimat Average Glucose 103 Hemoglobin A1c % 5.2 Urine Creatinine 252.57 Urine Microalbumin 33.0 Microalb/Creat Ratio 13.0 Coding Level of Care Code Tele Est Pt Level 4 (87002) Complex EM visit Add On G2211 Diagnoses Morbid obesity with body mass index (BMI) greater than or equal to 70 in adult E66.01; Z68.45 Mixed dyslipidemia E78.2 Type 2 diabetes mellitus without complication, without long-term current use of insulin E11.9 Additional Codes GROVER-7 Assessment Billing - GROVER-7 Assessment Tool: GROVER-7 Assessment 64695 ([id number]) PHQ-9 - 99475 - PHQ-9 Billing: Yes ([id number]) Assessment & Plan Assessment & Plan (1) Morbid obesity with body mass index (BMI) greater than or equal to 70 in adult: Comment: PATIENT IS GROSSLY OBESE, BUT LOSING WEIGHT. CURRENTLY ON TTIRZEPATIDE ( MOUNJARO ) INJECTIONS AND HE IS THRILLED TO REPORT THAT HE HAS LOST 26 LB SINCE HIS LAST VISIT. Code(s): E66.01 - Morbid (severe) obesity due to excess calories; Z68.45 - Body mass index [BMI] 70 or greater, adult Category: Medical Plan: No weight loss even on Mounjaro 5 mg once a week. Patient advised to stop bedtime snacking, cut back on his intake of processed foods, junk food, candy, start exercising at least with moderate intensity exercise for 15 minutes daily, continued on metformin but Mounjaro dose increased to 7.5 mg injected subcutaneously once a week. See him back in July 2025 for follow-up and physical exam. (2) Mixed dyslipidemia: Code(s): E78.2 - Mixed hyperlipidemia Category: Medical Plan: Reviewed his fasting lipids with patient which showed marked increase in his LDL cholesterol, currently not at goal of less than 100 mg/dL. Strongly advised to change his eating habits , stopped junk food, continued on rosuvastatin 5 mg daily, reinforced adherence to healthy eating habits and regular exercise. Will see him back for follow-up in July 2025 after repeat fasting lipids drawn (3) Type 2 diabetes mellitus without complication, without long-term current use of insulin: Code(s): E11.9 - Type 2 diabetes mellitus without complications Category: Medical Plan: Recent lab results reviewed with patient, with sugar and hemoglobin A1c controlled. Continued on metformin but Mounjaro dose increased to 7.5 mg once a week. continue to check fasting blood sugar at home, maintain log and bring to next appointment for review. Reinforced diabetic diet and regular exercise with patient. Counseled regarding importance of yearly diabetes retinopathy screening. Patient advised to inspect feet daily, for any signs of injury, callus or infection. Compliance with diet and regular exercise again stressed. Blood pressure goal is less than 130/80, goal LDL is less than 100 and goal hemoglobin A1c is less than 7% follow-up appointment made in July 2025, after fasting labs done. Orders: Orders 2 Basic Metabolic Panel Fasting 07/17/25 E11.9 - Type 2 diabetes mellitus without complications, E66.01 - Morbid (severe) obesity due to excess calories, E78.2 - Mixed hyperlipidemia, Z68.45 - Body mass index [BMI] 70 or greater, adult Lipid Panel 07/17/25 E11.9 - Type 2 diabetes mellitus without complications, E66.01 - Morbid (severe) obesity due to excess calories, E78.2 - Mixed hyperlipidemia, Z68.45 - Body mass index [BMI] 70 or greater, adult Hemoglobin A1c 07/17/25 E11.9 - Type 2 diabetes mellitus without complications, E66.01 - Morbid (severe) obesity due to excess calories, E78.2 - Mixed hyperlipidemia, Z68.45 - Body mass index [BMI] 70 or greater, adult Alanine Aminotransferase 07/17/25 E11.9 - Type 2 diabetes mellitus without complications, E66.01 - Morbid (severe) obesity due to excess calories, E78.2 - Mixed hyperlipidemia, Z68.45 - Body mass index [BMI] 70 or greater, adult Aspartate Amino Transferase 07/17/25 E11.9 - Type 2 diabetes mellitus without complications, E66.01 - Morbid (severe) obesity due to excess calories, E78.2 - Mixed hyperlipidemia, Z68.45 - Body mass index [BMI] 70 or greater, adult Medications: Changed From tirzepatide 5 mg (0.5 mL) subcut QWEEK 4 weeks 2 mL 1RF E11.29 - Type 2 diabetes mellitus with other diabetic kidney complication, E66.01 - Morbid (severe) obesity due to excess calories, E78.2 - Mixed hyperlipidemia, I10 - Essential (primary) hypertension, R80.9 - Proteinuria, unspecified, Z68.45 - Body mass index [BMI] 70 or greater, adult To tirzepatide 5 mg (0.3333 mL) subcut QWEEK 1.333 mL 3RF 4 weeks E11.29 - Type 2 diabetes mellitus with other diabetic kidney complication, E66.01 - Morbid (severe) obesity due to excess calories, E78.2 - Mixed hyperlipidemia, I10 - Essential (primary) hypertension, R80.9 - Proteinuria, unspecified, Z68.45 - Body mass index [BMI] 70 or greater, adult
--- OUTSIDE RECORDS SUMMARY | 2025-04-28 09:01 | XMS_ITS | Patient Health Record ---
Author Organization [facility] Address [address] [place] [address] Care Team Providers Care Senior Engineering Technician Name Role Phone Isi Carbajal Primary Care Provider Unavailab Nick Hobbs Unavailable [phone] Fernando Rosado Unavailable [phone] Allergies Allergen (clinical drug ingredient) Drug/Non Drug [...] Notes Problem Gastro-esophageal reflux disease without esophagitis (828853128) Gastro-esophageal reflux disease without esophagitis (K21.9) Active confirmed Problem Obstructive sleep apnea syndrome (41235118) MICKEY on CPAP (G47.33) Active confirmed Problem Chronic pain (18670039) Other chronic pain (G89.29) Active confirmed Problem Schizoaffective disorder, bipolar type (56420067) Schizoaffective disorder, bipolar type (F25.0) Active confirmed Problem Vitamin D deficiency (51615076) Vitamin D deficiency (E55.9) Active confirmed Problem Walking disability (175703227) Difficulty in walking (R26.2) Active confirmed Problem Generalized anxiety disorder (47600846) GROVER (generalized anxiety disorder) (F41.1) Inactive confirmed Problem Annual health maintenance examination (73702351) Annual physical exam (Z00.00) Active confirmed Problem History of urinary stone (034759079) H/O renal calculi (Z87.442) Active confirmed Problem Insomnia disorder related to another mental disorder (27056354) Insomnia due to other mental disorder (F51.05) Inactive confirmed Problem High risk drug monitoring status (742226626) halfway (current) use of opiate analgesic (Z79.891) Active confirmed Problem Essential hypertension (87113832) Benign essential HTN (I10) Active confirmed Problem History of fall (819228051) H/O fall (Z91.81) Active confirmed Problem Lumbosacral spondylosis without myelopathy (13117734) Spondylosis without myelopathy or radiculopathy, lumbar region (M47.816) Active confirmed Problem Chronic post-traumatic stress disorder (048469096) Chronic post-traumatic stress disorder (F43.12) Active confirmed Problem Tobacco user (024775763) Cigarette nicotine dependence in remission (F17.211) Problem resolved confirmed Problem Panic disorder with agoraphobia (31862768) 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 Problem Hyperlipidaemia (41352269) Hyperlipidemia, unspecified hyperlipidemia type (E78.5) Active confirmed Problem Moderate recurrent major depression (61927026) Moderate episode of recurrent major depressive disorder (F33.1) Inactive confirmed Problem Allergic rhinitis caused by pollen (14011776) Seasonal allergic rhinitis due to pollen (J30.1) Active confirmed Problem Polyneuropathy due to type 2 diabetes mellitus (347193156) Type 2 diabetes mellitus with diabetic polyneuropathy, without long-term current use of insulin (E11.42) Active confirmed Problem Carpal tunnel syndrome (61052865) Carpal tunnel syndrome, bilateral upper limbs (G56.03) Active confirmed Problem Long-term current use of drug therapy (749020980) halfway (current) use of oral hypoglycemic drugs (Z79.84) Active confirmed Problem Nondependent cannabis abuse (177185758) Marijuana use (F12.90) Inactive confirmed Problem Tobacco user (785571157) Vaping nicotine dependence, 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) Active confirmed Problem Rheumatoid arthritis (46253987) Rheumatoid arthritis, involving unspecified site, unspecified whether rheumatoid factor present (M06.9) Active confirmed Problem History of disease caused by Severe acute respiratory syndrome coronavirus 2 (situation) ([id number] 5) Personal history of COVID-19 (Z86.16) Inactive confirmed Problem Partially vaccinated for COVID-19 (Z28.311) Inactive confirmed Vital Signs Height-cm 177.8 cm 10/19/2024 Weight-kg 108.86 kg 10/19/2024 Height 70 in 10/19/2024 Weight 240 lbs 10/19/2024 BMI 34.43 kg/m2 10/19/2024 Encounters Encounter Location Date Provider Diagnosis [address] [id number] 10/19/2024 Fernando Rosado Annual physical exam Z00.00 [...] use of insulin (ICD-10 - E11.42) 10/19/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 Lives in [place] at the time
== END 2025-04-28 15:29 | disposition home or self-care (01) ==
LOC: HO.HMCC 08:31
PROVIDERS: PCP Internal Medicine; Visit Provider Internal Medicine
DX: E11.69 Type 2 diabetes mellitus with other specified complication (principal); E66.01 Morbid (severe) obesity due to excess calories; Z68.45 Body mass index [BMI] 70 or greater, adult; E78.2 Mixed hyperlipidemia

== ENCOUNTER → 2025-04-28 08:31 | Outpatient (BNVA) | payer OTHER, SELFPAY | PROVIDERS: PCP Internal Medicine; Visit Provider Internal Medicine | DX: E66.01 Morbid (severe) obesity due to excess calories (principal); E78.5 Hyperlipidemia, unspecified; E11.29 Type 2 diabetes mellitus with other diabetic kidney complication; E78.2 Mixed hyperlipidemia; Z68.45 Body mass index [BMI] 70 or greater, adult | CPT/HCPCS: 96127 ==